=== PATIENT | female | born 1955 | race Caucasian/White ===

== ENCOUNTER 2023-10-28 17:35 | Emergency (ER) | payer BC, SELFPAY ==
[2023-10-28 17:42] VITALS: BP 123/75; PULSE 77; RESP 20; TEMP 36.3; O2SAT 100
--- NOTE | 2023-10-28 18:17 | ED_ITS ---
HPI - General Adult General Chief complaint: Extremity Problem,Nontraumatic Stated complaint: Skin Sore/Finger Time Seen by Provider: 10/28/23 18:18 Source: patient Mode of arrival: ambulatory Limitations: no limitations History of Present Illness HPI narrative: Patient presents for evaluation of pain, swelling, redness and warmth to the skin surrounding the nail plate of the right index finger. Symptom onset 5 days ago. She saw her primary provider 2 days ago and was given a prescription for cephalexin. She has been taking it 3 times per day as directed. No significant improvement in her symptoms or after. She has also been applying warm soaks. She is not diabetic. She does not smoke. She is right-hand dominant. Denies loss of range of motion but movement makes her symptoms worse. She does not provide me with a descriptive quality or numerical rating to her pain. Related Data Home Medications Medication Instructions Recorded Confirmed alprazolam 0.25 mg tablet mg 10/28/23 cephalexin 500 mg capsule mg 10/28/23 clopidogrel 75 mg tablet mg 10/28/23 conjugated estrogens 0.625 mg/gram 10/28/23 vaginal cream (Premarin) famotidine 20 mg tablet (Pepcid) 20 mg PO DAILY 10/28/23 10/28/23 furosemide 20 mg tablet mg 10/28/23 levothyroxine 50 mcg tablet mcg 10/28/23 (Synthroid) losartan 50 mg tablet mg 10/28/23 nebivolol 10 mg tablet mg 10/28/23 Allergies Allergy/AdvReac Type Severity Reaction Status Date / Time erythromycin base Allergy Unknown Rash Verified 10/28/23 18:02 Sulfa (Sulfonamide Allergy Unknown Rash Verified 10/28/23 18:02 Antibiotics) ciprofloxacin [From Cipro] Allergy Unknown Verified 10/28/23 18:02 OXYCODONE HCL AdvReac Unknown Nausea and Uncoded 10/28/23 18:02 Vomiting Review of Systems Review of Systems: CONSTITUTIONAL: Denies fever, chills, or sweats. EYES: Denies visual changes, redness, or discharge. ENT: Denies rhinorrhea, congestion, sore throat, or otalgia. CARDIOVASCULAR: Denies chest pain, palpitations, or edema. RESPIRATORY: Denies cough or dyspnea. GASTROINTESTINAL: Denies abdominal pain, nausea, vomiting, or diarrhea. GENITOURINARY: Denies dysuria or hematuria. SKIN: Reports redness to the skin surrounding the nail plate of the right index finger with associated swelling MUSCULOSKELETAL: Reports pain in skin surrounding nailplate of right index finger. NEUROLOGIC: Denies headache, numbness, dizziness, or weakness. PSYCHIATRIC: Denies anxiety or depression. [facility] Past Medical History Medical History GERD (gastroesophageal reflux disease) Hypertension Surgical History Surgical History H/O: hysterectomy Family History Family History Mother Family history non-contributory Social History Social History Smoking status: Never smoker Substance use: never Living arrangements: with family Gender identity (if verbalized by the patient): Female Sexual Orientation (if Verbalized by the Patient): Straight or Heterosexual Exam Narrative: GENERAL: Well-appearing, well-nourished, and in no acute distress. HEAD: Normocephalic, atraumatic. EYES: PERRLA and EOMI. ENT: Nares clear, no rhinorrhea or epistaxis. Mucous membranes moist. Oropharynx without tonsillar hypertrophy exudate or other lesions. Bilateral TMs pearly sun nonbulging NECK: Supple. No adenopathy or masses. No carotid bruits or JVD CHEST: Clear to auscultation. No respiratory distress. No wheezes rales or rhonchi HEART: Regular rate and rhythm. No murmur heard. Normal peripheral pulses. ABDOMEN: Soft, nontender, nondistended, normal active bowel sounds. EXTREMITIES: Normal range of motion. There is tenderness in the soft tissue of the distal phalanx of the right index finger. SKIN: There is erythema and swelling to the skin surrounding the nail plate of the right index finger. NEURO: No focal deficits. Alert and oriented x3. PSYCH: Normal mood and affect. Course Course Emergency Course: This is a 68-year-old female who presented for evaluation a paronychia to the right index finger. She has not had considerable improvement with cephalexin. I do not appreciate a drainable fluid collection. Will expand coverage with clindamycin. She can stop her cephalexin. Continue with warm soaks. Follow up primary provider. Go to the ER for worsening symptoms. Patient in agreement with plan of care. Level of Care: Express Care Visit Vital Signs Vital signs: Vital Signs Temperature 36.3 C L 10/28/23 17:42 Pulse Rate 77 10/28/23 17:42 Respiratory Rate 20 10/28/23 17:42 Blood Pressure 123/75 10/28/23 17:42 Pulse Oximetry 100 10/28/23 17:42 Oxygen Delivery Room Air 10/28/23 17:42 Temperature 36.3 C L 10/28/23 17:42 Pulse Rate 77 10/28/23 17:42 Respiratory Rate 20 10/28/23 17:42 Blood Pressure 123/75 10/28/23 17:42 Pulse Oximetry 100 10/28/23 17:42 Oxygen Delivery Room Air 10/28/23 17:42 Medical Decision Making Vital Signs Vital Signs: Vital Signs Temperature 36.3 C L 10/28/23 17:42 Pulse Rate 77 10/28/23 17:42 Respiratory Rate 20 10/28/23 17:42 Blood Pressure 123/75 10/28/23 17:42 Pulse Oximetry 100 10/28/23 17:42 Oxygen Delivery Room Air 10/28/23 17:42 Temperature 36.3 C L 10/28/23 17:42 Pulse Rate 77 10/28/23 17:42 Respiratory Rate 20 10/28/23 17:42 Blood Pressure 123/75 10/28/23 17:42 Pulse Oximetry 100 10/28/23 17:42 Oxygen Delivery Room Air 10/28/23 17:42 Discharge Plan Discharge Clinical Impression: Paronychia of right index finger Patient Disposition: Home, Self-Care Condition: Stable Instructions: Antibiotic Form, Paronychia (ED) Patient Language: Hebrew Prescriptions: New clindamycin HCl 300 mg capsule 300 mg PO Q6H 10 Days Qty: 40 0RF No Action losartan 50 mg tablet clopidogrel 75 mg tablet alprazolam 0.25 mg tablet levothyroxine [Synthroid] 50 mcg tablet cephalexin 500 mg capsule Premarin 0.625 mg/gram cream furosemide 20 mg tablet nebivolol 10 mg tablet famotidine [Pepcid] 20 mg Tablet 20 mg PO DAILY Follow-up/Referrals: Taylor,Roge Guadalupe MD [Primary Care Provider] - Time of Disposition: 18:15
== END 2023-10-28 18:20 | disposition home or self-care (01) ==
PROVIDERS: Emergency Provider Nurse Practitioner; PCP Internal Medicine
DX: L03.011 Cellulitis of right finger (principal); K21.9 Gastro-esophageal reflux disease without esophagitis; I10 Essential (primary) hypertension
CPT/HCPCS: 99203; G0463

== ENCOUNTER 2023-12-20 11:53 | Emergency (ER) | payer BC, SELFPAY ==
[2023-12-20 11:58] VITALS: BP 126/56; PULSE 65; RESP 16; TEMP 36.2; O2SAT 99
--- NOTE | 2023-12-20 13:17 | ED.SKABFB ---
HPI - Skin/Abscess/Foreign Bdy General Chief complaint: Skin/Abscess/Foreign Body Stated complaint: Skin Sore /Finger Time Seen by Provider: 12/20/23 13:17 Source: patient, RN notes reviewed and old records reviewed Mode of arrival: ambulatory Limitations: no limitations History of Present Illness HPI narrative: 68 year old female with tenderness and swelling to her right index finger along radial aspect on nail bed with no redness or any fluctuation of tissue. Patient reports that she was treated in October for infection that was caused from a hangnail with antibiotic and it did heal well then about 4 weeks ago she smashed her finger in suitcase and area has no open wound but has been tender since and continues to have a small amount of swelling. 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 MD complaint: other (tenderness with swelling) Onset (ago): week(s) (4 weeks) Location: R hand (2nd finger radial aspect at nailbed ) Severity: mild Quality: aching and dull Treatments prior to arrival: OTC topical medication and other (tylenol) Related Data Home Medications Medication Instructions Recorded Confirmed alprazolam 0.25 mg tablet mg 10/28/23 cephalexin 500 mg capsule mg 10/28/23 clopidogrel 75 mg tablet mg 10/28/23 conjugated estrogens 0.625 mg/gram 10/28/23 vaginal cream (Premarin) famotidine 20 mg tablet (Pepcid) 20 mg PO DAILY 10/28/23 10/28/23 furosemide 20 mg tablet mg 10/28/23 levothyroxine 50 mcg tablet mcg 10/28/23 (Synthroid) losartan 50 mg tablet mg 10/28/23 nebivolol 10 mg tablet mg 10/28/23 Allergies Allergy/AdvReac Type Severity Reaction Status Date / Time erythromycin base Allergy Unknown Rash Verified 10/28/23 18:02 Sulfa (Sulfonamide Allergy Unknown Rash Verified 10/28/23 18:02 Antibiotics) ciprofloxacin [From Cipro] Allergy Unknown Verified 10/28/23 18:02 OXYCODONE HCL AdvReac Unknown Nausea and Uncoded 10/28/23 18:02 Vomiting Review of Systems Review of Systems: CONSTITUTIONAL: Denies fever, chills, or sweats. CARDIOVASCULAR: Denies chest pain, palpitations, or edema. RESPIRATORY: Denies cough or dyspnea. GASTROINTESTINAL: Denies abdominal pain, nausea, vomiting SKIN: Reports redness and swelling to radial aspect of distal 2nd finger along nail bed with no open wound or fluctuance of tissue. MUSCULOSKELETAL: Denies myalgia. NEUROLOGIC: Denies headache, numbness All systems reviewed & are unremarkable except as noted in HPI and below PMFSH Past Medical History Medical History GERD (gastroesophageal reflux disease) Hypertension Surgical History Surgical History H/O: hysterectomy Family History Family History Mother Family history non-contributory Social History Social History Smoking status: Never smoker Substance use: never Living arrangements: with family Gender identity (if verbalized by the patient): Female Sexual Orientation (if Verbalized by the Patient): Straight or Heterosexual Comments At time of signature, agree with nursing past medical, surgical, social and family history. There is no relevant family history pertinent to the presenting complaint Exam Narrative: GENERAL: Well-appearing, well-nourished, and in no acute distress. HEAD: Normocephalic, atraumatic. EYES: PERRLA and EOMI. ENT: Nares clear, no rhinorrhea or epistaxis. Mucous membranes moist. NECK: Supple.no lymphadenopathy CHEST: Clear to auscultation. No respiratory distress. SAO2 99% on room air HEART: Regular rate and rhythm. No murmur heard. Normal peripheral pulses. ABDOMEN: Soft, nontender, nondistended, normal active bowel sounds. EXTREMITIES: Normal range of motion. N
== END 2023-12-20 13:39 | disposition home or self-care (01) ==
PROVIDERS: Emergency Provider Registered Nurse; PCP Internal Medicine
DX: M79.644 Pain in right finger(s) (principal); R22.31 Localized swelling, mass and lump, right upper limb; I10 Essential (primary) hypertension; K21.9 Gastro-esophageal reflux disease without esophagitis
CPT/HCPCS: 99213; G0463

== ENCOUNTER 2024-08-12 08:03 | Emergency (ER) | payer BC, SELFPAY ==
[2024-08-12 08:07] VITALS: BP 122/63; PULSE 66; RESP 20; TEMP 37.2; O2SAT 100
--- NOTE | 2024-08-12 08:18 | ED.URI ---
HPI - URI/Sore Throat General Chief Complaint: Upper Respiratory Infection Stated Complaint: drainage/cough Time Seen by Provider: 08/12/24 08:18 History of Present Illness HPI Narrative: 69-year-old female with a history of PFO and occlude her in place, also wearing Holter monitor presented for complaint of 4 weeks of sinus drainage and cough. Endorses sinus pressure with bending over. states she waited a while because she tends to have allergy symptoms and has been taking Claritin or Florence but stopped due to concern for interaction with her new medicines. Patient denies shortness of breath, wheezing nausea, vomiting, diarrhea, fevers or lethargy. Related Data Home Medications ?Medication ?Instructions ?Recorded ?Confirmed ?Last Taken ?Type clopidogrel 75 mg tablet mg 10/28/23 Unknown History conjugated estrogens 0.625 mg/gram 10/28/23 Unknown History vaginal cream (Premarin) famotidine 20 mg tablet (Pepcid) 20 mg PO DAILY 10/28/23 10/28/23 Unknown History furosemide 20 mg tablet mg 10/28/23 Unknown History levothyroxine 50 mcg tablet mcg 10/28/23 Unknown History (Synthroid) losartan 50 mg tablet mg 10/28/23 Unknown History nebivolol 10 mg tablet mg 10/28/23 Unknown History escitalopram oxalate 5 mg tablet mg 08/12/24 Unknown History Allergies Allergy/AdvReac Type Severity Reaction Status Date / Time erythromycin base Allergy Unknown Rash Verified 08/12/24 08:21 Sulfa (Sulfonamide Allergy Unknown Rash Verified 08/12/24 08:21 Antibiotics) ciprofloxacin (From Cipro) Allergy Unknown Verified 08/12/24 08:21 oxycodone AdvReac Intermediate Nausea and Verified 08/12/24 08:21 Vomiting Review of Systems Review of Systems: CONSTITUTIONAL: Denies body aches, fever, chills, or sweats. EYES: Denies visual changes, redness, or discharge. ENT: Reports rhinorrhea, congestion CARDIOVASCULAR: Denies chest pain, palpitations, or edema. RESPIRATORY: Denies dyspnea. GASTROINTESTINAL: Denies abdominal pain, nausea, vomiting, or diarrhea. SKIN: Denies rash, itching, or wounds. MUSCULOSKELETAL: Denies back pain, joint pain, or myalgia. NEUROLOGIC: Denies headache PMFSH Past Medical History Medical History GERD (gastroesophageal reflux disease) Hypertension Surgical History Surgical History H/O: hysterectomy Family History Family History Mother Family history non-contributory Social History Social History Smoking status: Never smoker Substance use: never Living arrangements: with family Gender identity (if verbalized by the patient): Female Sexual Orientation (if Verbalized by the Patient): Straight or Heterosexual Exam Narrative: GENERAL: well-appearing, no acute distress. EYES: conjunctivae clear ENT: Mucous membranes moist. TM pearly sun with normal light reflex bilaterally; no tragal tenderness. Oropharynx not erythematous without lesions. No drooling, no hoarseness, no trismus, uvula midline. No tripod positioning, hot potato voice, or soft palate swelling. NECK: Supple. No lymphadenopathy CHEST: Clear to auscultation, breath sounds equal. No respiratory distress, speaks in full sentences. HEART: Regular rate and rhythm. No murmur heard. SKIN: Warm, dry, no rash. NEURO: Alert and oriented x3. Course Course Emergency Course: Patient is aware of diagnosis, understands and agrees to treatment plan. Anticipatory guidance given. Patient agrees to follow-up as directed and is aware of reasons to seek care at the emergency department. Portions of this record may have been created with voice recognition software Level of Care: Express Care Visit MDM - URI/Sore Throat MDM Narrative Medical decision making narrative: discussed physical exam findings and antibiotic. Advise supportive treatments. Patient is appropriate for outpatient treatment and follow-up. Differential Diagnosis Differential diagnosis: Likely upper respiratory infection, viral infection and pharyngitis Discharge Plan Discharge Clinical Impression: Sinusitis Patient Disposition: Home, Self-Care Condition: Stable Instructions: Antibiotic Form, Rhinosinusitis (ED) Additional Instructions: Take antibiotic as directed Recommendations: Flonase spray and Zyrtec (or Claritin/Florence) over the counter Cough syrup may cause drowsiness; avoid driving or take it at night time. Coricidin if you have high blood pressure. Tylenol 1000mg every 8 hours as needed for pain Symptomatic treatment includes: rest, fluids, and increase humidity of the air at home. Follow up with your primary care provider in 1 week. Go to the ER for worsening symptoms or concerns. Patient Language: Hong Konger Prescriptions: New amoxicillin-pot clavulanate 875-125 mg tablet 1 tablet PO Q12H 7 Days Qty: 14 0RF No Action losartan 50 mg tablet clopidogrel 75 mg tablet levothyroxine [Synthroid] 50 mcg tablet Premarin 0.625 mg/gram cream furosemide 20 mg tablet nebivolol 10 mg tablet famotidine [Pepcid] 20 mg Tablet 20 mg PO DAILY escitalopram oxalate 5 mg tablet Follow-up/Referrals: Brandon,Roge Guadalupe MD [Primary Care Provider] -
== END 2024-08-12 08:30 | disposition home or self-care (01) ==
PROVIDERS: Emergency Provider Nurse Practitioner Family; PCP Internal Medicine
DX: J32.9 Chronic sinusitis, unspecified (principal); I10 Essential (primary) hypertension
CPT/HCPCS: 99213; G0463

== ENCOUNTER 2024-09-24 13:54 | Emergency (ER) | payer MEDICARE, SELFPAY ==
[2024-09-24 14:08] VITALS: BP 136/67; PULSE 75; RESP 20; TEMP 36.8; O2SAT 98
--- NOTE | 2024-09-24 14:12 | ED.URI ---
HPI - URI/Sore Throat General Chief Complaint: Upper Respiratory Infection Stated Complaint: sinus infection Time Seen by Provider: 09/24/24 14:12 Source: patient, RN notes reviewed and old records reviewed Mode of arrival: ambulatory Limitations: no limitations History of Present Illness HPI Narrative: 69 year old female presents to [facility] care with complaints of cough, green nasal drainage, frontal headache,pain to upper facial cheek region, teeth and jaw for over one week duration. Patient reports that cough has improved some but is worse at night causing difficulty sleeping. Patient reports that she did have 101F.5 fever on Sunday. Patient has been taking Mucinex, Tylenol and Claritin for her symptoms. MD elicited complaint: fever, cough, rhinorrhea, nasal congestion, sinus pain and other (frontal headache) Onset (ago): week(s) (greater rhan 1 week) Pain scale (0-10): 6 Description of mucous: green Able to tolerate fluids by mouth: Yes Treatments prior to arrival: acetaminophen and other (Mucinex, Claritin) Related Data Home Medications ?Medication ?Instructions ?Recorded ?Confirmed ?Last Taken ?Type clopidogrel 75 mg tablet mg 10/28/23 Unknown History conjugated estrogens 0.625 mg/gram 10/28/23 Unknown History vaginal cream (Premarin) famotidine 20 mg tablet (Pepcid) 20 mg PO DAILY 10/28/23 09/24/24 Unknown History furosemide 20 mg tablet mg 10/28/23 Unknown History levothyroxine 50 mcg tablet mcg 10/28/23 Unknown History (Synthroid) losartan 50 mg tablet mg 10/28/23 Unknown History nebivolol 10 mg tablet mg 10/28/23 Unknown History escitalopram oxalate 5 mg tablet mg 08/12/24 Unknown History Allergies Allergy/AdvReac Type Severity Reaction Status Date / Time erythromycin base Allergy Unknown Rash Verified 09/24/24 14:08 Sulfa (Sulfonamide Allergy Unknown Rash Verified 09/24/24 14:08 Antibiotics) ciprofloxacin (From Cipro) Allergy Unknown Verified 09/24/24 14:08 oxycodone AdvReac Intermediate Nausea and Verified 09/24/24 14:08 Vomiting Review of Systems Review of Systems: CONSTITUTIONAL: Reports malaise, chills, sweats, or fever. EYES: Denies visual changes, redness, or discharge. ENT: Reports rhinorrhea, congestion, sinus pain, no otalgia and nosore throat. CARDIOVASCULAR: Denies chest pain, palpitations, or edema. RESPIRATORY: Reports cough.? Denies dyspnea. GASTROINTESTINAL: Denies abdominal pain, nausea, vomiting, diarrhea SKIN: Denies rash or itching. MUSCULOSKELETAL: Denies myalgia. NEUROLOGIC:Frontal headache. 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 There is no relevant family history pertinent to the presenting complaint Exam Narrative: GENERAL: Well-appearing, well-nourished, and in no acute distress. HEAD: Normocephalic EYES: PERRLA, conjunctivae clear ENT: Nares clear, turbinates edematous and erythematous, greenish discharge, sinus pressure and frontal headache. Mucous membranes moist. TM pearly sun with dull light reflex bilaterally; no tragal tenderness. Oropharynx erythematous without lesions. Tonsils not enlarged and without exudate, no drooling, no hoarseness, no trismus, uvula midline.post nasal drainage NECK: Supple. No lymphadenopathy CHEST: Clear to auscultation, breath sounds equal. No wheezing, rhonchi, rales, or stridor. No respiratory distress, speaks in full sentences.cough, increasing at night, SAO2 98% on room air HEART: Regular rate and rhythm. No murmur heard. SKIN: Warm, dry, no rash. NEURO: Alert and oriented x3. PSYCH: Normal mood and affect Course Course Emergency Course: Patient is aware of diagnosis, understands and agrees to treatment plan.? Anticipatory guidance given.? Patient agrees to follow-up as directed and is aware of reasons to seek care at the emergency department. Portions of this record may have been created with voice recognition software Level of Care: Express Care Visit Vital Signs Vital signs: Vital Signs Temperature 36.8 C 09/24/24 14:08 Pulse Rate 75 09/24/24 14:08 Respiratory Rate 20 09/24/24 14:08 Blood Pressure 136/67 09/24/24 14:08 Pulse Oximetry 98 09/24/24 14:08 Oxygen Delivery Room Air 09/24/24 14:08 Temperature 36.8 C 09/24/24 14:08 Pulse Rate 75 09/24/24 14:08 Respiratory Rate 20 09/24/24 14:08 Blood Pressure 136/67 09/24/24 14:08 Pulse Oximetry 98 09/24/24 14:08 Oxygen Delivery Room Air 09/24/24 14:08 Reviewed MDM - URI/Sore Throat MDM Narrative Medical decision making narrative: Differential diagnosis considered: Villa virus, strep pharyngitis, allergic rhinitis, upper respiratory tract infection, sinusitis, rhinosinusitis, nasopharyngitis. viral pharyngitis, otitis media, otitis externa, pneumonia, bronchitis, viral cough syndrome, viral syndrome, and influenza.? Exam findings show no acute concerns or changes; patient is non-toxic appearing and is in no distress.? Patient is appropriate for outpatient treatment and follow-up. Differential Diagnosis Differential diagnosis: Likely upper respiratory infection, sinusitis, viral infection, bronchitis and other (cough) Medical Records Attestation: I reviewed the patient's medical records. Lab Data Attestation: I reviewed the patient's lab results. Critical Care Time Critical Care Time Critical Care Time: No Discharge Plan Discharge Clinical Impression: Acute sinusitis Qualifiers: Sinusitis location: pansinusitis Recurrence: not specified as recurrent Qualified Code(s): J01.40 - Acute pansinusitis, unspecified Patient Disposition: Home, Self-Care Condition: Stable Instructions: Antibiotic Form, Sinusitis (ED) Additional Instructions: Increase fluids especially juices and water [id number] cough and cold medicine of your choice for your symptoms Zyrtec,Claritin, or Florence daily and include CORICIDIN decongestant Steroids as directed--take with food heat to the face 20-30 minutes 4-6 times a day for pain Salt water gargles, throat lozenges or throat sprays as desired Antibiotic as directed--finished the medication If your symptoms persist, change or worsen significantly before you can contact your personal physician then please, without delay, go to the emergency department for further evaluation. Follow-up with PCP in 7-10 days or sooner if needed Follow up with PCP soon in regards to your blood pressure which is elevated above threshold for referral. Blood pressure above 120/80 may indicate pre-hypertension. 136/67 Patient Language: Croatian Prescriptions: New amoxicillin-pot clavulanate 875-125 mg tablet 1 tablet PO Q12H Qty: 20 0RF methylprednisolone [Medrol (Spencer)] 4 mg tablets,dose pack See Rx Instructions .ROUTE .COMPLEX Qty: 21 0RF Rx Instructions: orally per package directions No Action losartan 50 mg tablet clopidogrel 75 mg tablet levothyroxine [Synthroid] 50 mcg tablet Premarin 0.625 mg/gram cream furosemide 20 mg tablet nebivolol 10 mg tablet famotidine [Pepcid] 20 mg Tablet 20 mg PO DAILY escitalopram oxalate 5 mg tablet Follow-up/Referrals: Brandon,Roge Guadalupe MD [Primary Care Provider] - Time of Disposition: 14:38 Quality Rachel Coma Scale Eyes: Open Verbal: Oriented and Alert Motor: Follows Commands Rachel Coma Total Score: 15
--- OUTSIDE RECORDS SUMMARY | 2024-09-24 15:33 | XMS_ITS | Encounter Summary ---
Author Organization [employer] Address 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
--- OUTSIDE RECORDS SUMMARY | 2024-09-24 15:33 | XMS_ITS | Clinical Summary ---
Author Organization [facility] Address [address] [place] [address] Care Team Providers Care Manager [employer] Name Role Phone Roge Taylor MD Primary Care Provider [phone] [facility],non-owned Affiliates and Associated Physician Practices is amultiple site organization consisting of ambulatory clinics and hospital sitesin [place], [place], [place] and [place]. This disclosure is being madepursuant to the Care Everywhere program and may not contain all information available regarding this patient. Last updated 18.[facility] Allergies Active Allergy Reactions Criticality Noted Date Comments Levonorgestrel-Ethinyl Estrad Unknown 08/03/2023 Oxycodone Shortness of Breath High 06/11/2019 Reaction: Trouble Breathing, Oxycodone-Acetaminophen Unknown,Shortnes s of Breath High 01/21/2020 Oxycodone-Acetaminophen Nausea and/or Vomiting 12/20/2012 Couldn't breathe Sulfa Drugs Urticaria Medium 12/20/2012 Sulfabenzamide Unknown 10/09/2016 Medications * Be aware that medications may not be up to date on this document. Alwaysverify current medications with the patient. Medication Sig Dispensed Refills Start Date End Date Status conjugated estrogens (PREMARIN) 0.625 MG/GM vaginal cream Insert 0.5 g into the vagina at bedtime. Active famotidine (Pepcid) 20 MG tablet Take 1 (one) tablet by mouth once daily Two tablets by mouth once a day Active aspirin (Aspirin) 81 MG chew tablet Take 1 (one) tablet by mouth once daily Active Cholecalciferol (VITAMIN D3 PO) Take 1 tablet by mouth once daily 04/19/2023 Active levothyroxine (Synthroid) 50 MCG tablet Take 1 (one) tablet by mouth once daily 02/20/2023 Active ALPRAZolam (Xanax) 0.25 MG tablet TAKE 1 TABLET BY MOUTH TWICE DAILY NEEDED 30 tablet 09/28/2023 Active furosemide (Lasix) 20 MG tablet Take 1 (one) tablet by mouth once daily 90 tablet 3 10/10/2023 Active losartan (Cozaar) 50 MG tablet Take 1 (one) tablet by mouth once daily 90 tablet 3 10/10/2023 Active escitalopram (Lexapro) 5 MG tablet Take 1 (one) tablet by mouth once daily 03/13/2024 Active clopidogrel (plaVIX) 75 MG tablet Take 1 (one) tablet by mouth once daily 90 tablet 3 09/16/2024 Active nebivolol (Bystolic) 10 MG tablet Take 1 (one) tablet by mouth once daily 90 tablet 3 09/16/2024 Active nebivolol (Bystolic) 10 MG tablet Take 1 (one) tablet by mouth once daily 11/22/2022 09/16/2024 Discontinued (Reorder) clopidogrel (plaVIX) 75 MG tablet Take 1 (one) tablet by mouth once daily 7 tablet 01/21/2024 09/16/2024 Discontinued (Reorder) Active Problems Problem Noted Date Diagnosed Date Mild carotid artery disease 09/20/2023 ASD (atrial septal defect) 06/15/2023 Mitral valve insufficiency, unspecified etiology 05/18/2023 Abnormal finding on MRI of brain 04/06/2023 Headache around the eyes 01/18/2023 Visual disturbance 01/18/2023 Chronic headache disorder 01/27/20222023 Allergic rhinitis 04/22/2020 07/26/2023 Overview (07/26/2023): Last Assessment & Plan: Flonase 2 sprays into each nostril while looking down over the sink, do not sniff in or blow nose after use for at least 30 minutes Cetirizine 10 mg (Zyrtec) daily Bilateral hearing loss 04/22/2020 4 Overview (07/26/2023): Last Assessment & Plan: Hearing test - call with results A Few Causes of Ringing in Your Ears (Tinnitus) discussed and Handout provided Lymphedema of both lower extremities 01/21/2020 Right leg pain 01/21/2020 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 01/21/2020 Osteoarthrosis 12/12/2019 07/26/2023 History of total hysterectom y with bilateral salpingo-oophorectomy (BSO) 06/13/2019 Osteopenia 09/06/2018 07/26/2023 Peripheral venous insufficiency 06/20/2017 07/26/2023 Steatosis of liver 06/20/2017 07/26/2023 Anxiety 06/08/2017 07/26/2023 Gastroesophageal reflux disease 06/08/2017 07/26/2023 Primary hypertension 06/08/2017 07/26/2023 Hypothyroidism 06/08/2017 07/26/2023 Resolved Problems Problem Noted Date Diagnosed Date Resolved Date Refusal of treatment 06/13/2019 024 Encounters Date Type Department Care Team Description 09/16/2024 Refill [facility] [address], [address] [place] [address] Deepthi Mauricio APRN-CNP MEDICATION REFILL 09/03/2024 Telephone [facility] [address], [address] [address] Edgard Washington DO Results 08/05/2024 9:15 AM COVER STRIPPER Procedure visit [facility] [address], [address] [place] [address] Bradycardia ; ASD (atrial septal defect) 07/31/2024 11:30 AM COVER STRIPPER Office Visit [facility] [address], [facility] [address] [place] [address] Edgard Washington DO Abnormal finding on MRI of brain (Primary Dx); ASD (atrial septal defect); Headache around the eyes; Bradycardia from Last 3 Months Immunizations Name Administration Dates Next Due INFLUENZA VACCINE, TRIV. (AF LURIA, FLUZONE TRIVALENT; 6MO+) (IIV3) 03/25/2012 Family History Medical History Relation Name Comments Hypertension Father Other - Cardiac Father Diabetes - Type 2 Mother Hypertension Mother Other Mother cardiac cath Other - Anesthesia Mother Demtia Relation Name Status Comments Father Mother Sister Alive Social History Tobacco Use Types Packs/Day Years Used Date Smoking Tobacco: Never Smokeless Tobacco: Never Alcohol Use Standard Drinks/Week Comments No 0 (1 standard drink = 0.6 oz pur e alcohol) Hunger Vital Sign Answer Date Recorded Within the past 12 months, y ou worried that your food would run out before you got the money to buy more. Never true 05/19/20 Within the past 12 months, t he food you bought just didn't last and you didn't have money to get more. Never true 05/19/2023 Sex and Gender Information Value Date Recorded Sex Assigned at Not on file Gender Identity Not on file Sexual Orientation Not on file Last Filed Vital Signs Vital Sign Reading Time Taken Comments Blood Pressure 112/63 07/31/2024 11:55 AM COVER STRIPPER Pulse 51 07/31/2024 11:55 AM COVER STRIPPER Temperature 36.2 C (97.1 F) 06/12/2024 10:29 AM COVER STRIPPER Respiratory Rate 18 06/16/2023 7:50 AM COVER STRIPPER Oxygen Saturation 99% 06/12/2024 10:29 AM COVER STRIPPER Inhaled Oxygen Concentration - - Weight 71.2 kg (157 lb) 07/31/2024 11:55 AM COVER STRIPPER Height 157.5 cm (5' 2 ) 07/31/2024 11:55 AM COVER STRIPPER Body Mass Index 28.72 07/31/2024 11:55 AM COVER STRIPPER Plan of Treatment Upcoming Encounters Date Type Department Care Team (Late st Contact Info) Description 01/22/2025 10:45 AM CDT Appointment [facility] [address] [place] [address] 01/22/2025 11:30 AM CDT Office Visit [facility] [address], [address] [place] [address] Keegan Olvera MD [address] [facility] [address] [place] [address] Health Maintenance Due Date Last Done Comments COLON MONITORING 1956 COLONOSCOPY - COLON CA SCREENING 1956 CT COLONOGRAPHY - COLON CA SCREENING 1956 FIT - COLON CA SCREENING 1956 FLEX SIG - COLON CA SCREENING 1955 HEPATITIS C SCREENING 03/22/1974 DTAP/TDAP/TD VACCINES (1 - Tdap) 1975 PNEUMOCOCCAL VACCINE 50+ (1 of 1 - PCV) 2006 ZOSTER VACCINE (1 of 2) 2006 COVID-19 VACCINE (1 - season) 2024 INFLUENZA VACCINE (#1) 2024 03/25/2012 DEPRESSION SCREENING 07/09/2024 COLOGUARD (AGES 45-75) - COLON CA SCREENING 07/26/2024 07/26/2021 Colorectal Cancer Screening 07/26/2024 MAMMOGRAM 09/20/2025 09/21/2023, 09/06, 09/14/2022, Additional history exists SCREENING FOR DIABETES 07/27/2026 , 06/16/2023, 06/08/2023, Additional history exists LIPID TESTING 04/24/2029 04/24/2024, 07/09, 04/19/2023, Additional history exists Respiratory Syncytial Virus (RSV) Vaccine Pt: or over 60 yrs (1 - 1-dose 75+ series) 2031 BONE DENSITY TESTING Completed 09/28/2022, 05/05/2016, 04/03/2014 HEPATITIS B VACCINE Aged Out No longe r eligible based on patient's age to complete this topic HIB VACCINE Aged Out No longer eligi ble based on patient's age to complete this topic HPV VACCINE Aged Out No longer eligi ble based on patient's age to complete this topic MENINGOCOCCAL (Group B) VACCINE SHARED DECISION-MAKING Aged Out No longer eligible based on patient's age to complete this topic MENINGOCOCCAL GROUPS A/C/Y/W VACCINE Aged Out No longer eligible based on patient's age to complete this topic Medical Devices Implanted Type Area Back Winder Device Identifier Shelf Expiration Date Model / Serial / Lot Oclr Cv Rt Atr Disc 30mm Lt Atr Disc 25 Implanted:Qty: 1 on 06/15/2023 by Keegan Olvera MD at [facility] [id number] 10/06/2025 9- PFO-3025 / N/A / [id number] Procedures Procedure Name Priority Date/Time Associated Diagnosis Comments EVENT MONITOR Routine 08/26/2024 9:19 AM COVER STRIPPER ASD (atrial septal defect) Bradycardia BASIC METABOLIC PANEL (CALCIUM TOTAL) Routine 07/27/2023 12:59 PM COVER STRIPPER ASD (atrial septal defect) Hypertension, unspecified type Dyslipidemia LIPID PROFILE Routine 07/27/2023 12:59 PM COVER STRIPPER Dyslipidemia from Last 3 Months or Most Recently Relevant to Health Maintenance Results * EVENT MONITOR (08/26/2024 9:19 AM COVER STRIPPER) Narrative Cecilia Oorna MD - 08/26/2024 9:19 AM COVER STRIPPER Cecilia Orona MD 08/28/2024 2:24 PM OVERALL IMPRESSION: Fourteen day monitor reviewed There were no arrhythmias, pauses or heart blocks No PVCs or PACs detected 6 total patient triggered events, for them associated with sinus bradycardia, the slowest symptomatic rate was 55 beats per minute Cecilia Orona MD Edgard Washington DO CARDIAC SERVICES ORD ERABLES * BASIC METABOLIC PANEL (BMP) (07/27/2023 12:59 PM COVER STRIPPER) Glucose 91 70 - 99 mg/dL [facility] ACCOUNT BILL BUN 14 8 - 27 mg/dL [facility] ACCOUNT BILL Creatinine 0.74 0.57 - 1.00 mg/dL [facility] ACCOUNT BILL eGFR by CKD-EPI 89 >59 mL/min/1.7 3 [facility] ACCOUNT BILL BUN/Creatinine Ratio 19 12 - 28 [facility] ACCOUNT BILL Sodium 137 134 - 144 mmol/L [facility] ACCOUNT BILL Potassium 4.1 3.5 - 5.2 mmol/L [facility] ACCOUNT BILL Chloride 98 96 - 106 mmol/L [facility] ACCOUNT BILL CO2 22 20 - 29 mmol/L [facility] ACCOUNT BILL Calcium 9.7 8.7 - 10.3 mg/dL [facility] ACCOUNT BILL Blood BLOOD SPECIMEN / Unknown 07/27/2023 12:59 PM COVER STRIPPER 07/27/2023 Narrative Resulting Agency Comment Lab Testing performed at: [facility] [place] [address] [facility] [phone] Deepthi Mauricio SERVER SUPPORT TECHNICIAN-TALENT ANALYST LAB - CHEMISTR Y ORDERABLES [facility] ACCOUNT BILL [address] [place] [address] * (ABNORMAL) LIPID PROFILE (LIPID PANEL) (07/27/2023 12:59 PM COVER STRIPPER) Cholesterol 189 100 - 199 mg/dL [facility] ACCOUNT BILL Triglycerides 101 0 - 149 mg/dL [facility] ACCOUNT BILL HDL Cholesterol 49 >39 mg/dL [facility] ACCOUNT BILL VLDL Calculated 18 5 - 40 mg/dL [facility] ACCOUNT BILL LDL Calculated 122(H) 0 - 99 mg/dL [facility] ACCOUNT BILL Comment NOT AVAILABLE [facility] ACCOUNT BILL Comment:Result cannot be obt ained for this observation. Blood BLOOD SPECIMEN / Unknown 07/27/2023 12:59 PM COVER STRIPPER 07/27/2023 Narrative Resulting Agency Comment Lab Testing performed at: [facility] [address] [id number] Deepthi Mauricio SERVER SUPPORT TECHNICIAN-TALENT ANALYST LAB - CHEMISTR Y ORDERABLES Performing Organization Address City/[facility] Co de Phone Number [facility] ACCOUNT BILL [address] [place] [address] from Last 3 Months or Most Recently Relevant to Health Maintenance Advance Directives * Full Code (Latest Code Status on File) Date Activated Date Inactivated Comments 06/15/2023 4:30 PM 06/16/2023 12:17 PM * Full Code Date Activated Date Inactivated Comments 05/18/2023 4:47 PM 05/19/2023 12:11 PM Care Teams Manager Six [employer] Relationship Specialty [place] [id number] [address] PCP - General Internal Medicine 02/06/18
--- OUTSIDE RECORDS SUMMARY | 2024-09-24 15:33 | XMS_ITS | Clinical Summary ---
Author Organization [facility] Address [address] [place] [address] Phone Care Team Providers Care Prefabricated Houses Trimmer Name Role Phone Roge Taylor MD Primary Care Provider [phone] Allergies Active Allergy Reactions Criticality Noted Date Comments Acetaminophen Shortness of Breath/Wheezing High 06/11/2019 Ciprofloxacin Unknown High 08/16/2017 Levonorgestrel-Ethinyl Estrad Other (See Comments),Unknown 08/03/2023 Oxycodone Shortness of Breath/Wheezing High 06/11/2019 Oxycodone-Acetaminophen Shortness of Breath/Wheezing,Other (See Comments) High 07/12/2012 Sulfa (Sulfonamide Antibiotics) Rash Low 07/12/2012 Medications multivitamin (DAILY-KAYLA) Oral tablet Take 1 Tab by mouth daily. Active levothyroxine 50 mcg tablet Take 50 mcg by mouth daily biztalk consultant. Active raNITIdine (ZANTAC) 150 mg tablet Take 150 mg by mouth 2 times daily. Active ergocalciferol , vitamin D2, (VITAMIN D ORAL) Take by mouth. Activ e cetirizine (ZyrTEC) 10 mg tablet cetirizine 10 mg tablet TAKE 1 TABLET BY MOUTH DAILY Active nebivoloL (Bystolic) 10 mg Tablet Take by mouth. 2 Active losartan (COZAAR) 50 mg tablet Take 50 mg by mouth daily. 3 Active furosemide (LASIX) 20 mg tablet Take 20 mg by mouth daily. 3 Active famotidine (PEPCID) 20 mg tablet Take by mouth every 12 hours. 2 Active cyanocobalamin 1,000 mcg Tablet take 1 tablet by oral route every day 3 025 Active clopidogreL (PLAVIX) 75 mg Tablet Take 75 mg by mouth daily. 3 Active cholecalcifero l, vitamin D3, 1,000 unit Take by mouth. Acti ve aspirin (TOM CHEWABLE) 81 mg Tablet, Chewable Take 81 mg by mouth daily. Active conjugated estrogens (Premarin) 0.625 mg/gram vaginal cream 1 Gram by See Admin Instructions route see administration instructions. 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 Encounters Date Type Department Care Team Description 09/24/2024 External Device Data STL ABSTRACTION Provider, Abstract 09/16/2024 External Device Data STL ABSTRACTION Provider, Abstract 09/16/2024 External Device Data STL ABSTRACTION Provider, Abstract 09/13/2024 External Device Data STL ABSTRACTION Provider, Abstract 09/12/2024 External Device Data STL ABSTRACTION Provider, Abstract 09/10/2024 External Device Data STL ABSTRACTION Provider, Abstract 09/09/2024 External Device Data STL ABSTRACTION Provider, Abstract 08/26/2024 External Device Data STL ABSTRACTION Provider, Abstract 07/29/2024 External Device Data STL ABSTRACTION Provider, Abstract 07/22/2024 External Device Data STL ABSTRACTION Provider, Abstract 07/15/2024 External Device Data STL ABSTRACTION Provider, Abstract from Last 3 Months Immunizations Immunization Administration Dates Next Due Influenza Seasonal Unspecified Formulation IM Family History Medical History Relation Name Comments Asthma Father Dementia Father Heart Attack Father Hypertension Father Other Father gout and neurop athy Breast Cancer Maternal Aunt 60's Dementia Mother Diabetes Mother Glaucoma Mother Heart defect Mother Hypertension Mother Relation Name Status Comments Father Alive Maternal Aunt Mother Alive Social History Tobacco Use Types Packs/Day Years Used Date Smoking Tobacco: Never Smokeless Tobacco: Never Tobacco Cessation:Counseling Given: Not Answered Alcohol Use Standard Drinks/Week Comments No 0 (1 standard drink = 0.6 oz pur e alcohol) Comments No Sex and Gender Information Value Date Recorded Sex Assigned at Not on file Legal Sex Female 4:55 AM CLINICAL STAFF ANESTHESIOLOGIST Gender Identity Not on file Sexual Orientation Not on file Occupation Industry Job Start Date Job End Date Not on file Not on file Not on file Not on file Last Filed Vital Signs Vital Sign Reading Time Taken Comments Blood Pressure 126/78 09/21/2023 9:27 AM CDT Pulse 71 06/07/2018 10:05 AM CLINICAL STAFF ANESTHESIOLOGIST Temperature 35.1 C (95.2 F) 07/25/2012 8:00 AM CLINICAL STAFF ANESTHESIOLOGIST Respiratory Rate 18 07/25/2012 8:00 AM CLINICAL STAFF ANESTHESIOLOGIST Oxygen Saturation 99% 07/25/2012 8:00 AM CLINICAL STAFF ANESTHESIOLOGIST Inhaled Oxygen Concentration - - Weight 73.7 kg (162 lb 6.4 oz) 09/21/2023 9:27 A M CDT Height 156.2 cm (5' 1.5 ) 09/21/2023 9:27 AM CDT Body Mass Index 30.19 09/21/2023 9:27 AM CDT Plan of Treatment Health Maintenance Due Date Last Done Comments Pre-Diabetes and Diabetes Screening 1955 DTAP/TDAP/TD VACCINES (1 - Tdap) 1975 FIT/FOBT Q 1 year 2001 Flex Sig/CT Colonography Q 5 years 2001 PNEUMOCOCCAL VACCINE 50+ YEA RS (1 of 1 - PCV) 2006 ZOSTER VACCINE (1 of 2) 2006 COLORECTAL SCREENING 12/21/2016 12/21/2006 INFLUENZA VACCINE (#1) 2024 03/25/2012 Colorectal Cancer Screening 07/26/2024 FIT-DNA Q 3 years 07/26/2024 07/26/2021 BREAST CANCER SCREENING 09/20/2024 09/21/19 24, 09/14/2022, 08/19/2021, Additional history exists OSTEOPOROSIS SCREENING 09/28/2025 3, 09/28/2022, 05/05/2016, Additional history exists RSV VACCINE (60+ or ) (1 - 1-dose 75+ series) 2031 Medical Devices Implanted Type Area Fur Cleaner Device Identifier Shelf Expiration Date Model / Serial / Lot Mesh Alyte Y-Mesh Y500 - [id number] Implanted:Qty: 1 on 07/22/2012 at [facility] Mesh N/A: Vagina CR BARD- MED DIV 03/09/2014 Y500 / / [id number] Amplatzer Talisman Pfo Occluder Procedures Procedure Name Priority Date/Time Associated Diagnosis Comments MAMMO 3D XAVI SCREEN BILAT W OR WO CAD Routine 09/21/2023 9:15 AM CDT Breast cancer screening by mammogram Breast density XR DEXA BONE DENSITY AXIAL 1 OR MORE SITES Routine 09/28/2022 11:18 AM CDT Menopause ovarian failure COLON CANCER SCREEN, STOOL DNA Routine 07/26/2021 1:43 PM CLINICAL STAFF ANESTHESIOLOGIST Screening for colon cancer from Last 3 Months or Most Recently Relevant to Health Maintenance Results * MAMMO SCRN BILAT 3D XAVI W OR WO CAD (09/21/2023 9:15 AM CDT) Anatomical Region Laterality Modality Breast Bilateral Mammography 09/21/2023 8:54 AM CDT Impressions 09/21/2023 1:05 PM CDT IMPRESSION: Normal screening mammogram. OVERALL FINAL ASSESSMENT: BI-RADS CATEGORY 1 - Negative Recommend annual screening mammography. DICTATION LOCATION: [facility] Narrative 09/21/2023 1:05 PM CDT EXAM: BILATERAL SCREENING DIGITAL MAMMOGRAM WITH 3D TOMOSYNTHESIS AND CAD DATE: 09/21/2023 8:52 AM INDICATION: Screening. COMPARISON STUDIES: 09/14/2022 - 08/05/2021 BREAST COMPOSITION: The breasts are heterogeneously dense, which may obscure small masses. FINDINGS: There is no concerning mass, asymmetry, malignant microcalcification or area of architectural distortion in either breast. There is no change when compared to previous mammograms. Computer aided diagnosis was utilized. 3D tomosynthesis performed in 4 standard projections reveals no evidence of architectural distortion or mass. Procedure Note Cameron Singh MD - 09/21/2023 EXAM: BILATERAL SCREENING DIGITAL MAMMOGRAM WITH 3D TOMOSYNTHESIS AND CAD DATE: 09/21/2023 8:52 AM INDICATION: Screening. COMPARISON STUDIES: 09/14/2022 - 08/05/2021 BREAST COMPOSITION: The breasts are heterogeneously dense, which may obscure small masses. FINDINGS: There is no concerning mass, asymmetry, malignant microcalcification or area of architectural distortion in either breast. There is no change when compared to previous mammograms. Computer aided diagnosis was utilized. 3D tomosynthesis performed in 4 standard projections reveals no evidence of architectural distortion or mass. IMPRESSION: Normal screening mammogram. OVERALL FINAL ASSESSMENT: BI-RADS CATEGORY 1 - Negative Recommend annual screening mammography. DICTATION LOCATION: [facility] us Chandni Quintana MD MAMMO ORDERABLES Final Resu lt * XR DEXA BONE DENSITY AXIAL 1 OR MORE SITES (09/28/2022 11:18 AM CDT) Anatomical Region Laterality Modality Digital Radiogra phy 09/28/2022 11:2 2 AM CDT Impressions 09/28/2022 11:29 AM CDT IMPRESSION: This is a summary page. Please refer to the complete detailed report found in the Imaging Section of the [facility] EMR. Osteopenia. Lumbar Spine: T-Score: 0.1 Left Femoral Neck: T-Score: -1.4 Left Total Femur: T-Score: -0.8 Right Femoral Neck: T-Score: -1.4 Right Total Femur: T-Score: -0.7 Left Forearm: T-Score: -1.8 Statistical change: Significant decrease of 8.9 % in Left femoral neck BMD since 2016. Significant decrease of 6.0 % in Right femoral neck BMD since 2016. Significant decrease of 5.3 % in Left forearm BMD since 2016. FRAX FRACTURE RISK ASSESSMENT: (Only valid Between 40-89 Years Of Age) Risk factors: None. 10 Year Probability Of Fracture Major Osteoporotic: 8.9 % Hip: 1.0 % Comparison population: [place], Race: White A major osteoporotic fracture is defined as a fracture of the spine, forearm, hip or shoulder. Definitions: Normal: T-score above -1.0 Osteopenia T-score less than -1.0 and above -2.5 Osteoporosis: T-score <= -2.5 Follow-up Recommendations: Patients without high risk factors for osteoporosis T-score -1.0 to -1.5 - Consider repeat BMD in 5-10 years T-score -1.5 to - 2.0 - Consider repeat BMD in 3-5 years T-score -2.0 to - 2.5 - Consider repeat BMD every 2 years Patients on treatment for osteoporosis 1-2 years after initiation of treatment and every 2 years thereafter D[address] Dr[address] Louis Galvin MD DICTATION LOCATION: 09/28/2022 11:29 AM CDT EXAMINATION: BONE DENSITY STUDY (DXA) DATE: 09/28/2022 11:18 AM HISTORY: 67 years Female. Postmenopausal. PROCEDURE: Planar images of the lumbar spine, hip(s) and forearm(s) using a Tepha DEXA scanner for bone mineral density determination (BMD). Prior bone density: 05/05/2016 FINDINGS: Lumbar Spine (L1-L3): T-Score: 0.1 1.184 g/sq cm Prior: 1.139 g/sq cm Left Femoral Neck: T-Score: -1.4 0.837 g/sq cm Prior: 0.919 g/sq cm Left Total Femur: T-Score: -0.8 Right Femoral Neck: T-Score: -1.4 0.847 g/sq cm Prior: 0.901 g/sq cm Right Total Femur: T-Score: -0.7 Left 33% Radius: T-Score: -1.8 0.721 g/sq cm Prior: 0.761 g/sq cm INCIDENTAL FINDINGS: L4 excluded bcause of statistical variation.. Procedure Note Louis Galvin MD - 09/28/2022 EXAMINATION: BONE DENSITY STUDY (DXA) DATE: 09/28/2022 11:18 AM HISTORY: 67 years Female. Postmenopausal. PROCEDURE: Planar images of the lumbar spine, hip(s) and forearm(s) using a Tepha DEXA scanner for bone mineral density determination (BMD). Prior bone density: 05/05/2016 FINDINGS: Lumbar Spine (L1-L3): T-Score: 0.1 1.184 g/sq cm Prior: 1.139 g/sq cm Left Femoral Neck: T-Score: -1.4 0.837 g/sq cm Prior: 0.919 g/sq cm Left Total Femur: T-Score: -0.8 Right Femoral Neck: T-Score: -1.4 0.847 g/sq cm Prior: 0.901 g/sq cm Right Total Femur: T-Score: -0.7 Left 33% Radius: T-Score: -1.8 0.721 g/sq cm Prior: 0.761 g/sq cm INCIDENTAL FINDINGS: L4 excluded bcause of statistical variation.. IMPRESSION: This is a summary page. Please refer to the complete detailed report found in the Imaging Section of the [facility] EMR. Osteopenia. Lumbar Spine: T-Score: 0.1 Left Femoral Neck: T-Score: -1.4 Left Total Femur: T-Score: -0.8 Right Femoral Neck: T-Score: -1.4 Right Total Femur: T-Score: -0.7 Left Forearm: T-Score: -1.8 Statistical change: Significant decrease of 8.9 % in Left femoral neck BMD since 2016. Significant decrease of 6.0 % in Right femoral neck BMD since 2016. Significant decrease of 5.3 % in Left forearm BMD since 2016. FRAX FRACTURE RISK ASSESSMENT: (Only valid Between 40-89 Years Of Age) Risk factors: None. 10 Year Probability Of Fracture Major Osteoporotic: 8.9 % Hip: 1.0 % Comparison population: [place], Race: White A major osteoporotic fracture is defined as a fracture of the spine, forearm, hip or shoulder. Definitions: Normal: T-score above -1.0 Osteopenia T-score less than -1.0 and above -2.5 Osteoporosis: T-score <= -2.5 Follow-up Recommendations: Patients without high risk factors for osteoporosis T-score -1.0 to -1.5 - Consider repeat BMD in 5-10 years T-score -1.5 to - 2.0 - Consider repeat BMD in 3-5 years T-score -2.0 to - 2.5 - Consider repeat BMD every 2 years Patients on treatment for osteoporosis 1-2 years after initiation of treatment and every 2 years thereafter Dictated by Dr. Louis Galvin MD DICTATION LOCATION: 1 Chandni Quintana MD DIAGNOSTIC IMAGING ORDERABL ES Final Result * COLON CANCER SCREEN, STOOL DNA (07/26/2021 1:43 PM CLINICAL STAFF ANESTHESIOLOGIST) COLOGUARD RESULT Negative Negative [facility] Comment: NEGATIVE TEST RESULT. A negative Cologuard result indicates a low likelihood that a colorectal cancer (CRC) or advanced adenoma (adenomatous polyps with more advanced pre-malignant features) is present. The chance that a person with a negative Cologuard test has a colorectal cancer is less than 1 in 1500 (negative predictive value >99.9%) or has an advanced adenoma is less than 5.3% (negative predictive value 94.7%). These data are based on a prospective cross-sectional study of 10,000 individuals at average risk for colorectal cancer who were screened with both Cologuard and colonoscopy. (Maurilio Zuñiga al, N Engl J Med 2014;370(14):9166-1359) The normal value (reference range) for this assay is negative. COLOGUARD RE-SCREENING RECOMMENDATION: Periodic colorectal cancer screening is an important part of preventive healthcare for asymptomatic individuals at average risk for colorectal cancer. Following a negative Cologuard result, the [place] Cancer Society and U.S. Multi-Society Task Force screening guidelines recommend a Cologuard re-screening interval of 3 years. References: [place] Cancer Society Guideline for Colorectal Cancer Screening: https://www.cancer.org/cancer/msecg-cvxkwv-dnxpxo/mxckgjomv-ilwkhhanl-lgodybd/ac s-rec ommendations.html.; Jaron DK, Jose A CR, Gladys HaileK, Colorectal Cancer Screening: Recommendations for Physicians and Patients from the U.S. Multi-Society Task Force on Colorectal Cancer Screening , Am J Gastroenterology 2017; 112:5922-0469. TEST DESCRIPTION: Composite algorithmic analysis of stool DNA-biomarkers with hemoglobin immunoassay. Quantitative values of individual biomarkers are not reportable and are not associated with individual biomarker result reference ranges. Cologuard is intended for colorectal cancer screening of adults of either sex, 45 years or older, who are at average-risk for colorectal cancer (CRC). Cologuard has been approved for use by the U.S. FDA. The performance of Cologuard was established in a cross sectional study of average-risk adults aged 50-84. Cologuard performance in patients ages 45 to 49 years was estimated by sub-group analysis of near-age groups. Colonoscopies performed for a positive result may find as the most clinically significant lesion: colorectal cancer [4.0%], advanced adenoma (including sessile serrated polyps greater than or equal to 1cm diameter) [20%] or non- advanced adenoma [31%]; or no colorectal neoplasia [45%]. These estimates are derived from a prospective cross-sectional screening study of 10,000 individuals at average risk for colorectal cancer who were screened with both Cologuard and colonoscopy. (Maurilio Mc et al, N Engl J Med 2014;370(14):7196-5273.) Cologuard may produce a false negative or false positive result (no colorectal cancer or precancerous polyp present at colonoscopy follow up). A negative Cologuard test result does not guarantee the absence of CRC or advanced adenoma (pre-cancer). The current Cologuard screening interval is every 3 years. ([place] Cancer Society and U.S. Multi-Society Task Force). Cologuard performance data in a 10,000 patient pivotal study using colonoscopy as the reference method can be accessed at the following location: www.FOODit/results. Additional description of the Cologuard test process, warnings and precautions can be found at www.[facility].com. Stool STOOL SPECIMEN / Unknown 07/26/2021 1:43 PM CLINICAL STAFF ANESTHESIOLOGIST 07/27/2021 4:36 PM CLINICAL STAFF ANESTHESIOLOGIST Chandni Qunitana MD BODY FLUIDS AND STOOLS Brittany pitts Result [employer] CLIA # [id number] [address] , [address] [place] [address] from Last 3 Months or Most Recently Relevant to Health Maintenance Insurance [facility] BLUE ACCESS CHOICE [facility] BLUE ACCESS CHOICE Advance Directives For more information, please contact: [phone] * Full Code (Latest Code Status on File) Date Activated Date Inactivated Comments 07/22/2012 5:23 PM 07/25/2012 6:22 PM * Full Code Date Activated Date Inactivated Comments 07/22/2012 12:13 PM 07/22/2012 5:23 PM * Full Code Date Activated Date Inactivated Comments 07/22/2012 9:10 AM 07/22/2012 12:13 PM Care Teams Prefabricated Houses Trimmer Relationship Specialty [place] [id number] [facility] [address] [place] [id number] PCP - General Internal Medicine 08/05/21
--- OUTSIDE RECORDS SUMMARY | 2024-09-24 15:33 | XMS_ITS | Encounter Summary ---
Author Organization [facility] Address 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 Gender Identity Not on file Sexual Orientation Not on file documented as of this encounter Plan of Treatment Not on file documented as of this encounter Procedures Procedure Name Priority Date/Time Associated Diagnosis Comments HEMOGLOBIN AND HEMATOCRIT Routine 11/13/2005 2:16 PM CDT documented in this encounter Results * (ABNORMAL) HEMOGLOBIN AND HEMATOCRIT (11/13/2005 2:16 PM CDT) HEMOGLOBIN 15.5(H) 11.8 - 14.8 g/dL INTERFACE SYSTEM HEMATOCRIT 44.6(H) 35.5 - 44.0 % INTERFACE SYSTEM 11/13/2005 2:16 PM CDT us Harman Noble MD HEMATOLOGY ORDERABLES F inal Result INTERFACE SYSTEM Refer to clinic/hospital department documented in this encounter Visit Diagnoses Diagnosis Dyspareunia- Primary documented in this encounter Care Teams Amusement Park Entertainer Relationship Specialty [place] [address] [place] [address] PCP - General Internal Medicine 08/05/21 documented as of this encounter
--- OUTSIDE RECORDS SUMMARY | 2024-09-24 15:33 | XMS_ITS | Encounter Summary ---
Author Organization [facility] Address [address] [place] [address] Care Team Providers Care Talent Director Name Role Phone Roge Taylor MD Primary Care Provider [phone] Encounter Details Date Type Department Care Team (Late st Contact Info) Description 02/14/2005 Inpatient Historical [facility] Harman Noble MD [address] [facility] [address] [place] [address] VAGINAL ENTEROCELE (Primary Dx) Social History Tobacco Use Types Packs/Day Years Used Date Smoking Tobacco: Never Assessed Comments Unknown Sex and Gender Information Value Date Recorded Sex Assigned at Not on file Legal Sex Female 4:55 AM MANAGER ENGLISH Gender Identity Not on file Sexual Orientation Not on file documented as of this encounter Plan of Treatment Not on file documented as of this encounter Procedures Procedure Name Priority Date/Time Associated Diagnosis Comments HEPATITIS C ANTIBODY Routine 02/16/2005 9:20 AM CDT CBC WITH DIFFERENTIAL Routine 02/01/2005 11:42 AM CDT CBC WITH DIFFERENTIAL Routine 02/01/2005 11:42 AM CDT BASIC METABOLIC PANEL Routine 02/01/2005 11:42 AM CDT documented in this encounter Results * HEPATITIS C ANTIBODY (02/16/2005 9:20 AM CDT) HEPATITIS C AB NON-REACT JANEY NON-REACT JANEY INTERFACE SYSTEM Comment: Lab test performed by: [facility] [address] [place] [address] CLYDE SANDY MD 02/16/2005 9:20 AM CDT Ivory Stovall MD CHEMISTRY ORDERAB LES Final Result Performing Organization Address City/[facility]/ZIP Co de Phone Number INTERFACE SYSTEM Refer to clinic/hospital department * CBC WITH DIFFERENTIAL (02/01/2005 11:42 AM CDT) NEUTROPHILS 61 45 - 70 % INTERFAC E SYSTEM LYMPHOCYTES 31 16 - 45 % INTERFAC E SYSTEM MONOCYTES 6 3 - 13 % INTERFACE SYSTEM EOSINOPHILS 1 0 - 7 % INTERFAC E SYSTEM BASOPHILS 0 0 - 2 % INTERFACE SYSTEM NEUTROPHIL ABSOLUTE 4.88 1.90 - 7.00 K/uL INTERFACE SYSTEM LYMPHOCYTE ABSOLUTE 2.50 0.70 - 4.50 K/uL INTERFACE SYSTEM MONOCYTE ABSOLUTE 0.49 0.10 - 1.30 K/uL INTERFACE SYSTEM EOSINOPHIL ABSOLUTE 0.10 0.00 - 0.70 K/uL INTERFACE SYSTEM BASOPHILS ABSOLUTE 0.02 0.00 - 0.20 K/uL INTERFACE SYSTEM 02/01/2005 11:4 2 AM CDT us Harman Noble MD HEMATOLOGY ORDERABLES F inal Result Performing Organization Address [facility] Co de Phone Number INTERFACE SYSTEM Refer to clinic/hospital department * (ABNORMAL) CBC WITH DIFFERENTIAL (02/01/2005 11:42 AM CDT) WBC 8.0 4.0 - 9.8 K/uL INTERFACE SYSTEM RBC 4.84 3.90 - 4.90 M/uL INTERFACE SYSTEM HEMOGLOBIN 15.1(H) 11.8 - 14.8 g/dL INTERFACE SYSTEM HEMATOCRIT 43.3 35.5 - 44.0 % INTERFACE SYSTEM MCV 89.5 82.0 - 99.0 fL INTERFACE SYSTEM MCH 31.2 27.2 - 32.6 pg INTERFACE SYSTEM MCHC 34.9 31.5 - 35.5 % INTERFACE SYSTEM RDW 13.4 11.5 - 14.5 % INTERFACE SYSTEM RDW-STDEV 43.8 37.1 - 48.7 fL INTERFACE SYSTEM PLATELETS 209 140 - 350 K/uL INTERFACE SYSTEM MPV 10.1 9.3 - 12.4 fL INTERFACE SYSTEM 02/01/2005 11:4 2 AM CDT Harman Noble MD HEMATOLOGY ORDERABLES F inal Result Performing Organization Address City/[facility]/ZIP Co de Phone Number INTERFACE SYSTEM Refer to clinic/hospital department * BASIC METABOLIC PANEL (02/01/2005 11:42 AM CDT) GLUCOSE 94 65 - 109 mg/dL INTERFACE SYSTEM CREATININE 0.8 0.4 - 1.2 mg/dL INTERFACE SYSTEM CALCIUM 9.3 8.6 - 10.2 mg/dL INTERFACE SYSTEM BUN 14 6 - 20 mg/dL INTERFACE SYSTEM SODIUM 143 135 - 145 mmol/L INTERFACE SYSTEM POTASSIUM 4.3 3.5 - 4.9 mmol/L INTERFACE SYSTEM CHLORIDE 108 96 - 108 mmol/L INTERFACE SYSTEM CO2 25 22 - 30 mmol/L INTERFACE SYSTEM 02/01/2005 11:4 2 AM CDT Harman Noble MD CHEMISTRY ORDERABLES Fi nal Result Performing Organization Address [facility] Phone Number INTERFACE SYSTEM Refer to clinic/hospital department documented in this encounter Visit Diagnoses Diagnosis Vaginal enterocele, congenital or acquired- Primary documented in this encounter Care Teams Talent Director Relationship Specialty [place] [address] [facility] [address] [place] [id number] PCP - General Internal Medicine 08/05/21 documented as of this encounter
--- OUTSIDE RECORDS SUMMARY | 2024-09-24 15:33 | XMS_ITS | Clinical Summary ---
Author Organization [facility] Address [address] [place] [address] Care Team Providers Care Blog Writer Name Role Phone Flor Castillo MD Unavailable Roge Taylor MD Primary Care Provider [phone] Allergies Active Allergy Reactions Criticality Noted Date Comments Acetaminophen Shortness of breath Reaction: Trouble Breathing, Ciprofloxacin Unknown High 08/16/2017 Levonorgestrel-Ethinyl Estrad Unknown 08/03/2023 Oxycodone Shortness of breath Reaction: Trouble Breathing, Oxycodone-Acetaminophen Shortness of breath High Sulfa (Sulfonamide Antibiotics) Hives Reaction: Hives, Medications melatonin tablet take 1 Tablet by Oral route every day 0 0 06/16/20 15 Active estrogens, conjugated, (PREMARIN) vaginal cream insert (1G) by vaginal route every day cyclically, 3 weeks on and 1 week off 0 0 08/21/19 15 Active cyanocobalamin (vitamin B-12) 1,000 mcg tablet take 1 by Oral route qd 0 0 08/21/19 15 Active multivitamin (MULTIPLE VITAMINS) tablet tablet take 1 tablet by oral route every day with food 0 0 08/21/19 15 Active ALPRAZolam (XANAX) 0.25 mg tablet take 1 tablet by ORAL route every day at bedtime 30 0 02/13/20 15 Active gabapentin (NEURONTIN) 300 mg capsule take 1 capsule by oral route 2 times every day 60 4 05/05/[address] (NexIUM) 40 mg capsule take 1 capsule by oral route every day at bedtime 30 6 08/21/19 15 Active benzonatate (TESSALON) 200 mg capsule take 1 capsule by oral route 3 times every day as needed for cough 20 0 06/28/20 16 Active ciprofloxacin (CIPRO) 250 mg tablet take 1 tablet by oral route every 12 hours 14 0 08/06/19 17 Active cetirizine (ZyrTEC) 10 mg tablet take 1 tablet by oral route every day 90 1 09/29/19 16 Active fluticasone (FLONASE) 50 mcg/actuation nasal spray spray 2 spray by intranasal route every day in each nostril 1 Bottle 3 09/29/19 16 Active levothyroxine (SYNTHROID, LEVOTHROID) 50 mcg tablet TAKE 1 TABLET EVERY DAY FIRST THING IN THE MORNING 90 tablet 03/01/20 17 Active triamterene-hydroC HLOROthiazide (MAXZIDE,DYAZIDE) 37.5-25 mg per tablet TAKE ONE-HALF (1/2) TABLET DAILY 45 tablet 3 03/01/20 17 Active levothyroxine (SYNTHROID, LEVOTHROID) 50 mcg tablet TAKE 1 TABLET EVERY DAY FIRST THING IN THE MORNING 90 tablet 1 08/28/19 18 Active escitalopram (LEXAPRO) 10 mg tablet TAKE 1 TABLET DAILY 90 tablet 11/27/19 18 Active ranitidine (ZANTAC) 150 mg capsule Take 1 capsule (150 mg total) by mouth 2 (two) times a day Active famotidine (PEPCID) 20 mg tablet Take 1 tablet (20 mg total) by mouth 2 (two) times a day Active fluticasone propionate (FLONASE) 50 mcg/actuation nasal sprayIndications:A llergic rhinitis, unspecified seasonality, unspecified trigger Administer 2 sprays into each nostril daily 16 g 11 04/22/20 20 Active Additional Information Patient not taking.Reported on 08/03/2023 triamterene-hydroC HLOROthiazide (Dyazide) 37.5-25 mg per tablet/capsule Take by mouth A ctive ondansetron ODT (ZOFRAN-ODT) 4 mg disintegrating tablet Take 1 tablet (4 mg total) by mouth every 8 (eight) hours as needed for nausea or vomiting 20 tablet 03/30/20 21 Active furosemide (LASIX) 20 mg tablet Take 1 tablet (20 mg total) by mouth daily 05/19/20 23 Active nebivoloL (BYSTOLIC) 10 mg tablet Take 1 tablet (10 mg total) by mouth daily 09/15/19 22 Active losartan (COZAAR) 50 mg tablet Take 1 tablet (50 mg total) by mouth daily 05/19/20 23 Active clopidogreL (PLAVIX) 75 mg tablet Take 1 tablet (75 mg total) by mouth daily 06/17/20 23 Active aspirin 81 mg chewable tablet Take 1 tablet (81 mg total) by mouth daily Active Active Problems Problem Noted Date Diagnosed Date Bilateral hearing loss 04/22/2020 Assessment & Plan (04/22/2020 7:01 PM CDT): Hearing test - call with results A Few Causes of Ringing in Your Ears (Tinnitus) discussed and Handout provided Allergic rhinitis 04/22/2020 Assessment & Plan (04/22/2020 6:58 PM CDT): Flonase 2 sprays into each nostril while looking down over the sink, do not sniff in or blow nose after use for at least 30 minutes Cetirizine 10 mg (Zyrtec) daily Bilateral lower extremity edema 07/22/2018 Assessment & Plan (07/22/2018 10:12 AM NURSE PRACTITIONER): Right worse than left. Evidence of tributary vein reflux on Doppler in February. Will repeat Doppler to determine if there's deep or truncal vein reflux that could account for edema. Discussed possibility of lymphedema if we rule out a venous source - in which case we would recommend the knee high 20-30 mmHg support hose she is already wearing coupled with manual lymphatic drainage offered through a local physical therapy outlet. Muscle spasm of right calf 07/22/2018 Gastroesophageal reflux disease 08/21/2014 Overview (10/12/2016): GERD Hypothyroidism 08/21/2014 Overview (10/12/2016): Hypothyroidism Hypertension 08/21/2014 Overview (10/12/2016): Hypertension Recurrent urinary tract infection 08/21/2014 Overview (10/12/2016): Frequent UTI Well woman exam with routine gynecological exam 04/03/2014 Vaginal prolapse 07/22/2012 Surgical History Surgery Date Site/Laterality Comments TOTAL ABDOMINAL HYSTERECTOMY Hysterectomy, total CARDIAC SURGERY 06/15/2023 [facility], Cardiac Surgery Medical History Medical History Date Comments Hx Other Medical 12/07/1992 Tubaligation; C omments: KKL 08/21/2014 - Anxiety disorder Anxiety Hypertension Hypertension Hx Other Medical 09/2013 plasma rich alexander sma grafts bilateral knee Hx Other Medical tubal ligation; Comments: EMB 10/16/2014 - Hx Other Medical hysterectomy; C omments: EMB 10/16/2014 - Hx Other Medical cystocele; Comm ents: EMB 10/16/2014 - Hx Other Medical rectocele; Comm ents: EMB 10/16/2014 - Hx Other Medical sarcospinous co lpopexy; Comments: EMB 10/16/2014 - Hx Other Medical perineoplasty; Comments: EMB 10/16/2014 - Hx Other Medical abdominal sacro colpopexy; Comments: EMB 10/16/2014 - Hx Other Medical enterocele repa ir; Comments: EMB 10/16/2014 - Family History Medical History Relation Name Comments Dementia Father Dementia; Heart disease Father Heart disease; Hypertension Father Hypertension; Dementia Mother Dementia; Cause of : Dementia Diabetes Mother Diabetes mellit us; Glaucoma Mother Glaucoma; Hypertension Mother Hypertension; Dementia Other Family history of Dementia; Relation Name Status Comments Father Mother Other Social History Tobacco Use Types Packs/Day Years Used Date Smoking Tobacco: Never Smokeless Tobacco: Never Tobacco Cessation:Counseling Given: Not Answered Alcohol Use Standard Drinks/Week Comments No 0 (1 standard drink = 0.6 oz pur e alcohol) Personal Safety Answer Date Recorded Have you ever been in or are you currently in a harmful physical or emotional relationship or is someone making you feel afraid or unsafe? Denies 02/17/2023 Comments No Sex and Gender Information Value Date Recorded Sex Assigned at Not on file Legal Sex Female 7:09 PM NURSE PRACTITIONER Gender Identity Not on file Sexual Orientation Not on file Obstetrics History Last Filed Vital Signs Vital Sign Reading Time Taken Comments Blood Pressure 126/64 08/03/2023 10:03 AM NURSE PRACTITIONER Pulse 72 08/03/2023 10:03 AM NURSE PRACTITIONER Temperature 36.3 C (97.4 F) 08/03/2023 10:03 AM NURSE PRACTITIONER Respiratory Rate 20 08/03/2023 10:03 AM NURSE PRACTITIONER Oxygen Saturation 98% 08/03/2023 10:03 AM NURSE PRACTITIONER Inhaled Oxygen Concentration - - Weight 72.6 kg (160 lb) 08/03/2023 10:03 AM NURSE PRACTITIONER Height 157.5 cm (5' 2 ) 08/03/2023 10:03 AM NURSE PRACTITIONER Body Mass Index 29.26 08/03/2023 10:03 AM NURSE PRACTITIONER Plan of Treatment Health Maintenance Due Date Last Done Comments Colon Cancer Screening-Colonoscopy 1955 Depression Screening 1956 Fall Risk Assessment 1956 Hepatitis C Screening 1956 DTaP/Tdap/Td Vaccine (1 - Tdap) 1967 Hepatitis B Screening 1974 Pneumococcal vaccine 65+ (1 of 1 - PCV) 2006 Zoster Vaccine (1 of 2) 2006 Well Visit 65+ 2021 Influenza Vaccine (#1) 2024 03/25/2012 Breast Cancer Screening-Mammogram 09/20/2024 09/21/2023, 09/21/2023, 09/14/2022, Additional history exists Osteoporosis Screening-Bone Density Scan 09/28/2024 09/28/2022, 09/28/2022, 05/05/2016, Additional history exists Insurance [employer] OOS Member Subscriber Plan / Payer (Ef fective 2018-Present) Name:Rafia Floyd Relation to Subscriber:Spouse Name:Pj Floyd Date of :1959 (Home) Address: [address] [place] [address] Payer ID:[id number] (NAIC) Type:[facility] Address: [address] [place] [id number] MEDICARE MEDICARE MEDICARE BLUE ACC CHOICE OOS MEDICARE [facility] Address: [id number] [place] [address] BLUE [facility] CHOICE OOS Care Teams Blog Writer Relationship Specialty Start Date End Date Roge Taylor MD PCP - General Internal Medicine 07/22/18 Flor Castillo MD Consulting Physician Urology 07/11/18
--- OUTSIDE RECORDS SUMMARY | 2024-09-24 15:33 | XMS_ITS | Referral Summary ---
Author Organization [facility] Address [address] [place] [address] Care Team Providers Care Outside Upholsterer Name Role Phone Flor Castillo MD Unavailable Roge Taylor MD Primary Care Provider [phone] Allergies Active Allergy Reactions Criticality Noted Date [...] 07/22/2018 Assessment & Plan (07/22/2018 10:12 AM CUT OFF MACHINE UNLOADER): Right worse than left. Evidence of tributary [...] routine gynecological exam 04/03/2014 Vaginal prolapse 07/22/2012 Social History Tobacco Use Types Packs/Day Years [...] on file Legal Sex Female 7:09 PM CUT OFF MACHINE UNLOADER Gender Identity Not on file Sexual Orientation Not on file Last Filed Vital Signs Vital Sign Reading Time Taken Comments Blood Pressure 126/64 08/03/2023 10:03 AM CUT OFF MACHINE UNLOADER Pulse 72 08/03/2023 10:03 AM CUT OFF MACHINE UNLOADER Temperature 36.3 C (97.4 F) 08/03/2023 10:03 AM CUT OFF MACHINE UNLOADER Respiratory Rate 20 08/03/2023 10:03 AM CUT OFF MACHINE UNLOADER Oxygen Saturation 98% 08/03/2023 10:03 AM CUT OFF MACHINE UNLOADER Inhaled Oxygen Concentration - - Weight 72.6 kg (160 lb) 08/03/2023 10:03 AM CUT OFF MACHINE UNLOADER Height 157.5 cm (5' 2 ) 08/03/2023 10:03 AM CUT OFF MACHINE UNLOADER Body Mass Index 29.26 08/03/2023 10:03 AM CUT OFF MACHINE UNLOADER Plan of Treatment Not on file Insurance [employer] OOS MEDICARE MEDICARE MEDICARE BLUE ACC CHOICE OOS MEDICARE BLUE ACC CHOICE OOS Care Teams Outside Upholsterer Relationship Specialty Start Date End Date Roge Taylor MD PCP - General Internal Medicine 07/22/18 Flor Castillo MD Consulting Physician Urology 07/11/18
--- OUTSIDE RECORDS SUMMARY | 2024-09-24 15:33 | XMS_ITS | Encounter Summary ---
Author Organization [facility] Address [address] [place] [address] Care Team Providers Care Spray Operator Name Role Phone Roge Taylor MD Primary Care Provider [phone] Encounter Details Date Type Department Care Team (Late Contact Info) Description 05/16/2018 [facility] Outpatient Visit [facility] [address] [place] [address] Kirill [place] [address] [facility] [address] [place], [place] [id number] Social History Tobacco Use Types Packs/Day Years Used Date Smoking Tobacco: Never Smokeless Tobacco: Never Alcohol Use Standard Drinks/Week Comments No 0 (1 standard drink = 0.6 oz pur e alcohol) Sex and Gender Information Value Date Recorded Sex Assigned at Not on file Gender Identity Not on file Sexual Orientation Not on file documented as of this encounter Plan of Treatment Upcoming Encounters Date Type Department Care Team (Late Contact Info) Description 01/22/2025 10:45 AM CDT Appointment [facility] [address] [facility] [address] [place] [address] 01/22/2025 11:30 AM CDT Office Visit [facility] [address], [address] [place] [address] Keegan Olvera MD [address] [facility] [address] [place] [address] documented as of this encounter Visit Diagnoses Not on filedocumented in this encounter Care Teams Spray Operator Relationship Specialty [place] [address] [id number] PCP - General Internal Medicine 02/06/18 documented as of this encounter
--- OUTSIDE RECORDS SUMMARY | 2024-09-24 15:33 | XMS_ITS | Encounter Summary ---
Author Organization [employer] [facility] Address [address] [place] [address] Care Team Providers Care Energy Rater Name Role Phone Roge Taylor MD Primary Care Provider [phone] Encounter Details Date Type Department Care Team (Late st Contact Info) Description 09/19/2007 Outpatient Historical [facility], [address] Harman Noble MD [address] [place] [address] Urinary Tract Infection, Site not Specified Social History Tobacco Use Types Packs/Day Years Used Date Smoking Tobacco: Never Assessed Comments Unknown Sex and Gender Information Value Date Recorded Sex Assigned at Not on file Legal Sex Female 4:55 AM RELIGIOUS HEALER Gender Identity Not on file Sexual Orientation Not on file documented as of this encounter Plan of Treatment Not on file documented as of this encounter Procedures Procedure Name Priority Date/Time Associated Diagnosis Comments URINE CULTURE Routine 09/19/2007 8:10 PM CDT documented in this encounter Results * URINE CULTURE (09/19/2007 8:10 PM CDT) PRELIMINARY REPORT Pending INTERFACE SYSTEM FINAL REPORT No growth 24 hours INTERFACE SYSTEM 09/19/2007 8:10 PM CDT 09/19/2007 9:41 PM CDT Narrative INTERFACE SYSTEM - 09/19/2007 11:36 PM CDT [phone] us Harman Noble MD MICROBIOLOGY - GENERAL ORDERABLES Final Result INTERFACE SYSTEM Refer to clinic/hospital department documented in this encounter Visit Diagnoses Diagnosis Urinary tract infection, site not specified documented in this encounter Care Teams Energy Rater Relationship Specialty [place] [address] [facility] [address] [place] [address] PCP - General Internal Medicine 08/05/21 documented as of this encounter
--- OUTSIDE RECORDS SUMMARY | 2024-09-24 15:33 | XMS_ITS | Encounter Summary ---
Author Organization [employer] Address [address] [place] [address] Care Team Providers Care Window Glazier Name Role Phone Roge Taylor MD Primary Care Provider [phone] Encounter Details Date Type Department Care Team (Late st Contact Info) Description 01/07/2003 Outpatient [facility] Division of Neurology [address] [place] [address] [address] [address] Dot Ag MD Social History Tobacco Use Types Packs/Day Years Used Date Smoking Tobacco: Never Assessed Comments Unknown Sex and Gender Information Value Date Recorded Sex Assigned at Not on file Legal Sex Female 4:55 AM SALES ADVISORY MANAGER Gender Identity Not on file Sexual Orientation Not on file documented as of this encounter Plan of Treatment Not on file documented as of this encounter Visit Diagnoses Not on filedocumented in this encounter Care Teams Window Glazier Relationship Specialty [place] [address] [address] [place] [address] PCP - General Internal Medicine 08/05/21 documented as of this encounter
--- OUTSIDE RECORDS SUMMARY | 2024-09-24 15:33 | XMS_ITS | Encounter Summary ---
Author Organization [facility] Address [address] [place] [address] Care Team Providers Care Prototype Engineer Manager Name Role Phone Roge Taylor MD Primary Care Provider [phone] Encounter Details Date Type Department Care Team (Late st Contact Info) Description 09/24/2024 External Device Data [facility] ABSTRACTION Provider, Abstract NO ADDRESS ON FILE Social History Tobacco Use Types Packs/Day Years Used Date Smoking Tobacco: Never Smokeless Tobacco: Never Alcohol Use Standard Drinks/Week Comments No 0 (1 standard drink = 0.6 oz pur e alcohol) Comments No Sex and Gender Information Value Date Recorded Sex Assigned at Not on file Legal Sex Female 4:55 AM ELECTRONIC EQUIPMENT TRADES WORKER Gender Identity Not on file Sexual Orientation Not on file Occupation Industry Job Start Date Job End Date Not on file Not on file Not on file Not on file documented as of this encounter Plan of Treatment Not on file documented as of this encounter Visit Diagnoses Not on filedocumented in this encounter Care Teams Prototype Engineer Manager Relationship Specialty [place] [address] [facility] [address] [place] [address] PCP - General Internal Medicine 08/05/21 documented as of this encounter
--- OUTSIDE RECORDS SUMMARY | 2024-09-24 15:33 | XMS_ITS | CONTINUITY OF CARE DOCUMENT ---
Author Name new wolff Address Unknown Organization [facility] Address [address] [address] [facility] [address] [place] [address] Phone [phone] Care Team Providers Care Energy Audit Advisor Name Role Phone Manoj ANN, Luis Unavailable [phone] ISIS WATSON MD Unavailable ISIS WATSON MD Unavailable PROBLEMS Condition Status Date Provider Notes Venous insufficiency active Baltazar kennedy Dx per Dr. Watson Other symptoms involving cardiovascular system completed - Abran Beach MD Lightheadedness active Abran Beach MD HTN essential active Abran Beach MD Hypothyroidism active Abran Beach MD GERD active Abran Beach MD Obesity active Abran Beach MD Shortness of breath active Abran Beach MD Near syncope active Abran Beach MD Coronary atherosclerosis active Luis Aranda MD Family History of Hypertension: completed - Abran Beach MD ENCOUNTERS Date Type Provider Location Encounter Diag nosis 2 - 2 In-person encounter Office Visit Luis Aranda MD [facility] 2 - 6 In-person encounter Office Visit Luis Aranda MD [facility] Coronary atherosclerosis 8 - 8 In-person encounter Office Visit Luis Aranda MD [facility] 8 - 0 In-person encounter Office Visit Luis Aranda MD [facility] 9 - 2 In-person encounter Office Visit Luis Aranda MD [facility] 9 - 1 In-person encounter Office Visit Luis Aranda MD [facility] 8 - 9 In-person encounter Office Visit Luis Aranda MD [facility] 2 - 3 In-person encounter Office Visit Abran Beach MD [facility] Family History of Hypertension:Other symptoms involving cardiovascular systemNear syncope 8 - 8 In-person encounter Office Visit Abran Beach MD [facility] 7 - 7 In-person encounter Office Visit Abran Beach MD [place] [facility] Shortness of breath 4 - 4 In-person encounter Office Visit Abran Beach MD [place] [facility] 9 - 9 In-person encounter Office Visit Abran Beach MD [facility] LightheadednessHTN essentialHypothyroidismGERDObesity VITAL SIGNS Date Observation Value Provider Body Mass Index (Ratio) 29.84 kg/m2 renée Aranda MD blood pressure, diastolic 73 mm[Hg] [facility] bella Russell blood pressure, systolic 140 mm[Hg] Tomer Russell oxygen saturation, oximetry 97 % Lurdes Russell pulse rate 73 /min Lurdes Russell respiratory rate E&M 18 /min Lurdes polk weight E&M 165.8 [lb_av] Lurdes Russell height E&M 62.5 [in_i] Lurdes Russell Body Mass Index (Ratio) 29.66 kg/m2 renée Aranda MD blood pressure, diastolic -1 mm[Hg] Kamini nkLogcharmaine blood pressure, systolic 129 mm[Hg] Chantelle kLogcharmaine blood pressure, diastolic 70 mm[Hg] Ame Amaro blood pressure, systolic 129 mm[Hg] She salomon Amaro blood pressure, cuff size regular Ame Amaro respiratory rate E&M 18 /min Justina Amaro oxygen saturation, oximetry 99 % Justina Amaro pulse rate 66 /min Justina Amaro weight E&M 164.8 [lb_av] Justina Amaro height E&M 62.5 [in_i] Justina Amaro Body Mass Index (Ratio) 28.97 kg/m2 sean Aranda MD blood pressure, cuff size regular Blair rri Gruenenfelder blood pressure, diastolic 80 mm[Hg] Ke rri Gruenenfelder blood pressure, systolic 136 mm[Hg] Ker ri Claudia oxygen saturation, oximetry 99 % Christelle Claudia respiratory rate E&M 16 /min Christelle G marybelenefoster pulse rate 70 /min Christelle Grlauranenfe lder weight E&M 161 [lb_av] Christelle Gruenenfe lder height E&M 62.5 [in_i] Christelle Gruenenfe lder Body Mass Index (Ratio) 30.95 kg/m2 sean Aranda MD blood pressure, cuff size regular Ke rri Gruenenfelder blood pressure, diastolic 72 mm[Hg] Ke rri Gruenenfelder blood pressure, systolic 130 mm[Hg] Ker ri Dimitriuenenfelder oxygen saturation, oximetry 100 % Christelle Gruenenfelder respiratory rate E&M 16 /min Christelle smalls pulse rate 65 /min Christelle Awais radhaer weight E&M 172 [lb_av] Christelle Awais radhaer height E&M 62.5 [in_i] Christelle Ernandez danial Body Mass Index (Ratio) 30.59 kg/m2 Elroy Aranda MD blood pressure, cuff size large Me samina Kila blood pressure, diastolic 80 mm[Hg] Me samina Kila blood pressure, systolic 140 mm[Hg] [facility] helle Kila oxygen saturation, oximetry 98 % Latrice Callahan respiratory rate E&M 16 /min Aaliyah Edwardsand pulse rate 79 /min Latrice motta weight E&M 170 [lb_av] Latrice motta height E&M 62.5 [in_i] Latrice motta Body Mass Index (Ratio) 30.41 kg/m2 [facility] renée Aranda MD blood pressure, cuff size large Me samina Kila blood pressure, diastolic 80 mm[Hg] Me samina Kila blood pressure, systolic 150 mm[Hg] [facility] helle Kila oxygen saturation, oximetry 97 % Latrice Callahan respiratory rate E&M 18 /min Aaliyah robert EdwardsCallahan pulse rate 73 /min Latrice motta weight E&M 169 [lb_av] Latrice motta height E&M 62.5 [in_i] Latrice motta Body Mass Index (Ratio) 30.59 kg/m2 Elroy Aranda MD oxygen saturation, oximetry 98 % Lillistcarolina Haley pulse rate 72 /min Chastity Sudha weight E&M 170 [lb_av] Chastity Sudha blood pressure, diastolic 68 mm[Hg] Ch astity Sudha blood pressure, systolic 171 mm[Hg] Lilli stity Sudha respiratory rate E&M 16 /min Chastit y Sudha height E&M 62.5 [in_i] Chastity Sudha Body Mass Index (Ratio) 30.95 kg/m2 Keri Beach MD blood pressure, diastolic 86 mm[Hg] Li nkLogic blood pressure, systolic 124 mm[Hg] Chantelle kLogic blood pressure, cuff size large Ca therine [place] blood pressure, diastolic 86 mm[Hg] Ca therine Neftaly blood pressure, systolic 124 mm[Hg] Cat herine [place] height E&M 62.5 [in_i] Rehana [place] oxygen saturation, oximetry 98 % Rehana Neftaly respiratory rate E&M 16 /min Catheri ne Neftaly pulse rate 92 /min Rehana [place] weight E&M 172 [lb_av] Rehana [place] blood pressure, diastolic 68 mm[Hg] Me weldonsa Virgen blood pressure, systolic 116 mm[Hg] Rain jori Virgen pulse rate 76 /min Kelley Virgen oxygen saturation, oximetry 98 % Kelley Virgen respiratory rate E&M 15 /min Kelley Virgen Body Mass Index (Ratio) 32.03 kg/m2 Jihan reba Virgen weight E&M 178 [lb_av] Kelley Virgen blood pressure, diastolic 79 mm[Hg] Senait Ayala blood pressure, systolic 151 mm[Hg] Katie Ayala Body Mass Index (Ratio) 31.78 kg/m2 Kimberlee Ayala pulse rate 79 /min Robert stoddard oxygen saturation, oximetry 97 % Robert Ayala respiratory rate E&M 18 /min Yumiko Ayala weight E&M 176.6 [lb_av] Robert simpson Body Mass Index (Ratio) 31.49 kg/m2 Baez i Claudia blood pressure, diastolic 70 mm[Hg] Ke rri Claudia blood pressure, systolic 110 mm[Hg] Ker ri Claudia pulse rate 77 /min Christelle Awais [place] oxygen saturation, oximetry 98 % Christelle Taylor respiratory rate E&M 16 /min Christelle smalls weight E&M 175 [lb_av] Christelle Awais garciaer Body Mass Index (Ratio) 32.03 kg/m2 Amina Abraham blood pressure, diastolic 85 mm[Hg] Juan Abraham blood pressure, systolic 150 mm[Hg] Donell Abraham pulse rate 73 /min Lili Abraham oxygen saturation, oximetry 99 % Lili Abraham respiratory rate E&M 17 /min Lili Abraham weight E&M 178 [lb_av] Lili Abraham height E&M 62.5 [in_i] Lili Abraham ALLERGIES Allergy Name Onset Date Reaction Criticality Status PERCOCET Low Criticality active SULFA Low Criticality active RESULTS Date Observation Value Provider Reference Range Interpretation Location NT-pro BNP 88 [facility] Normal alanine aminotransferase (SGPT), serum 32 1/L [facility] 6-29 High aspartate aminotransferase (SGOT), serum 22 1/L [facility] 10-35 Normal alkaline phosphatase, serum 74 1/L [facility] 37-153 Normal bilirubin, serum, total 0.7 mg/dL [facility] 0.2-1.2 Normal albumin/globulin ratio, serum 1.8 (calc) [facility] 1.0-2.5 Normal globulins, serum, total 2.4 G/DL (CALC) [facility] 1.9-3.7 Normal albumin, serum 4.3 g/dL [facility] 3.6-5.1 Normal protein, total, serum 6.7 g/dL [facility] 6.1-8.1 Normal calcium, serum 9.7 mg/dL [facility] 8.6-10.4 Normal carbon dioxide, venous blood 26 mmol/L [facility] 20-32 Normal chloride, serum 104 mmol/L [facility] 98-110 Normal potassium, serum 4.1 mmol/L [facility] 3.5-5.3 Normal sodium, serum 140 mmol/L [facility] 135-146 Normal urea nitrogen/creatinine ratio, serum NOT APPLICABLE (calc) [facility] 6-22 Estimated Glomerular Filtration Rate (calc) 87 mL/min/{1.73 _m2} [facility] > OR = 60 Normal creatinine, serum 0.82 mg/dL [facility] 0.50-0.99 Normal urea nitrogen, blood 14 mg/dL [facility] 7-25 Normal blood glucose, random 187 mg/dL [facility] 65-99 High thyroid stimulating hormone, serum 2.36 u[IU]/mL [facility] 0.40-4.50 Normal free thyroxine index 2.6 [facility] 1.4-3.8 Normal thyroxine, serum, total 8.8 ug/dL [facility] 5.1-11.9 Normal triiodothyronine resin uptake 30 % [facility] 22-35 Normal microalbumin/creati nine ratio, urine NOTE mcg/mg creat [facility] <30 Normal microalbumin/total urine volume <0.2 mg/dL [facility] See Note: Normal creatinine, random, urine 22 mg/dL [facility] 20-275 Normal cholesterol, non-HDL, total 153 mg/dL [facility] C, [place] [address] HDL CHOLESTEROL 46 mg/dL [facility] >=40 Normal , [place] [address] triglyceride, serum, fasting 148 mg/dL [facility] <=149 Normal , [place] [address] cholesterol, serum 199 mg/dL [facility] 30-199 Normal , [place] [address] HISTORY OF MEDICATION USE Medication Status Instructions Dates Provider Indications Com ments nebivolol 10 mg tablet active TAKE 1 TABLET DAILY Juan Renee Vitamin D3 25 mcg (1,000 unit) tablet active Take 1 tablet by mouth once a day Christelle Taylor vitamin H36-dtiil acid unspecified unspecified active Take 1 tablet by mouth once a day Christelle Taylor Maximum Red Krill [place]-3 unspecified unspecified active Take 1 capsule by mouth once a day Christelle Taylor Vitamin C unspecified unspecified active Take 1 tablet by mouth once a day Christelle Taylor zinc acetate unspecified unspecified active Take 1 capsule by mouth once a day Christelle Taylor Bystolic 10 mg tablet completed Take 1 tablet by mouth once a day - Sade Tomlin metoprolol succinate 50 mg tablet extended release 24 hr completed Take 1 1/2 tablet by mouth once a day - Abran Beach MD cetirizine 10 mg tablet active Abran Beach MD triamterene-hydr ochlorothiazid 37.5-25 mg tablet completed 1 tablet once a day - Robert Ayala levothyroxine 50 mcg tablet active 1 tablet once a day Abran Beach MD EQ COMPLETE MULTIVITAMIN-ERLIN LT TABS active 1 tablet once a day Abran Beach MD Xanax 0.25 mg tablet completed 0.5 tablet as needed - Abran Beach MD metoprolol tartrate 50 mg tablet completed 1 tablet once a day - Abran Beach MD Nexium 40 mg capsule,delayed release(DR/EC) active 1 capsule once a day Abran Beach MD SOCIAL HISTORY Date Observation Value Provider smoking status Never smoker Lurdes Russell smoking status Never smoker Justina Amaro smoking status Never smoker Christelle bell number of grandchildren Luis Aranda MD smoking status Never smoker Christelle bell smoking status Never smoker Latrice Edwards and smoking status Never smoker Latrice Edwards and smoking status Never smoker Kait Alcarazu robert number of grandchildren Abran Beach MD social history E&M Patient has n ever smoked. Smoking History: Sean vieyra has never smoked. Abran Beach MD social history reviewed E&M revi ewed - no changes required Abran Beach MD smoking status Never smoker Rehana gerardo social history reviewed E&M revi ewed - no changes required Abran Beach MD smoking status Never smoker Kelley Mary Beth kennedy social history reviewed E&M revi ewed - no changes required Abran Beach MD smoking status Never smoker Robert Goldberg smoking status Never smoker Abran Beach MD social history reviewed E&M revi ewed - no changes required Abran Beach MD social history E&M Patient has n ever smoked. Smoking History: P jarrell has never smoked. Abran Beach MD social history reviewed E&M revi ewed - no changes required Abran Beach MD smoking status Never smoker Abran Beach MD FUNCTIONAL STATUS Date Observation Value Provider HRA, CV Assess/Plan, Angina (inactive) Management Plan continue current therapy Luis Aranda MD HRA, CV Assess/Plan, Angina (inactive) Management Plan continue current therapy Luis Aranda MD FAMILY HISTORY Family Member Condition Father Family History of Co ngestive Heart Failure: Father Family History of Co ronary Artery Disease: Father Family History of Hy pertension: Mother Family History of Co ronary Artery Disease: Mother Family History of Di abetes: INSURANCE PROVIDERS Payer name Policy type / Coverage type [place] [employer] party ID [facility] [id number] 1 ADVANCE DIRECTIVES Name Date DISCUSSED - NO DECISION MADE TREATMENT PLAN Date Name Performer [id number],C, improved. Tresa Nalluri VEGETABLE SORTER [id number],C, H er updated medication list for this problem includes: Nexium 40 Mg Capsule,delayed Release(dr/ec) (Esomeprazole magnesium) ..... 1 capsule once a day Tresa Nalluri VEGETABLE SORTER [id number],C, B P today: 140/73 P rior BP: 129/-1 (10/18/2022) Her updated medication list for this problem includes: Nebivolol 10 Mg Tablet (Nebivolol) ..... Take 1 tablet daily Tresa Nalluri VEGETABLE SORTER [id number],C, S he has been walking and changing her eating habits and has lost 11lbs and still going. Tresa Nalluri VEGETABLE SORTER [id number],C, n t bnp 218 m uch improved Tresa Nalluri VEGETABLE SORTER [id number],C, T race edema, improved e levates u ses Knee sleeve w alks a lot venous dopplers showed 1 . No evidence of a deep vein thrombosis of the lower extremities bilaterally. 2 . Significant venous insufficiency of the great saphenous vein bilaterally. 3 . Significant venous insufficiency of the small saphenous vein bilaterally. hold off venous occlusion and stay with conservative rx Tresa Nalluri REMBERTO [id number],C, o cc Her updated medication list for this problem includes: Nebivolol 10 Mg Tablet (Nebivolol) ..... Take 1 tablet daily Tresa Nalluri REMBERTO [id number],C,n t bnp 218 m uch improved [facility] Manoj ANN [id number],C,wc [facility] Davide s [id number],C,2 + edema e levates u ses coprssion w alks a lot check venous dopplers as this appears to be affecting her a lot [facility] Manoj ANN [id number],C,o cc [facility] Manoj ANN [id number],B, Beata Jiames St art REMBERTO [id number],C, S he has been walking and changing her eating habits and has lost 11lbs and still going. Beata Jay NP [id number],C, B P today: 136/80 P rior BP: 130/72 (12/14/2021) Labs Reviewed: C reat: 0.82 (12/16/2021) C hol: 199 (09/14/2021) Beata Jay NP [id number],C, D enies Beata Jay NP [id number],B, r ethel u ses stockings had lymphoscintigraphy in 2019 Patent lymphatic system bilaterally with evidence of more breezy activity i n the right than the left but with collateral lymphatics in the right l ower extremity below the knee level. w as referred to Dr Zuniga at this time she will continue with conservative treatment Beata Jay NP [id number],C, B P today: 130/72 P rior BP: 140/80 (09/14/2021) Labs Reviewed: C hol: 199 (09/14/2021) m uch improved Beata Jay VEGETABLE SORTER [id number],C,has been losi ng weight and walking Beata Jay VEGETABLE SORTER [id number],C, D enies Beata Jay VEGETABLE SORTER [id number],C, r eally wc u ses stockings Beata Jay VEGETABLE SORTER [id number],C, suspect vasovagal a gree with increased fluid hydration e chocardiogram has been done, stress test to be done this Sunday Had nuclear stress test which was negative from an echocardiographic standpoint - EKg did have ischemic changes. CCS 218 Beata Jay VEGETABLE SORTER [id number],C,r pm a vg 139/74 Luis Manoj ANN [id number],C,r pm shows average bp 141/73 w ill d/w pt at next appt Luis Manoj ANN [id number],C,r eally wc u ses stockings Luis Manoj ANN [id number],C, B P today: 140/80 P rior BP: 150/80 (08/17/2021) will change her metoprolol to bystolic 10mg daily Beata Jay VEGETABLE SORTER [id number],C, suspect vasovagal a gree with increased fluid hydration e chocardiogram has been done, stress test to be done this Sunday Had nuclear stress test which was negative from an echocardiographic standpoint - EKg did have ischemic changes. CCS 218 Beata Jay VEGETABLE SORTER [id number],C, B P today: 150/80 P rior BP: 171/68 (06/15/2021) Beata Jay VEGETABLE SORTER [id number],C, D enies Beata Jay VEGETABLE SORTER [id number],C, H er second problems is edema around her ankles which gets worse in pms and is oftn better in am a fter being recumbent. She has been wearing compression stockings for 3 years with partial benefit. 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 I reassured her re cvi - advised that the risk of any adverse outcome is zero D iscussed conservative measures including thigh high 20-30mmHg compression stockings, leg elevation, and ambulation Beata Johnstonrobert SR [id number],C, suspect vasovagal a gree with increased fluid hydration w ill check echo and stress echo and if these are neg will recommend tilt test echocardiogram has been done, stress test to be done this Sunday Beata Jaimes Pierre SR [id number],C,b p high w ill do rpm Discussion of benefits for remote patient monitoring took place. Patient gives consent for remote monitoring of physiologic parameters including, but not limited to, weight, blood pressure, pulse oximetry, respiratory flow rate. Luisrenée Aranda MD [id number],C,H er second problems is edema around her ankles which gets worse in pms and is oftn better in am a fter being recumbent. She has been wearing compression stockings for 3 years with partial benefit. 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 I reassured her re cvi - advised that the risk of any adverse outcome is zero D iscussed conservative measures including thigh high 20-30mmHg compression stockings, leg elevation, and ambulation Luisrenée Aranda MD [id number],C,S he has issues with episodes of near syncope and her second issue of that of LE edema. O n 05/24 she was in her car and felt that she was going to pass out - did not pass out and this sensation lasted for 20 minutes. A week later she was at [employer] and the same feeling came on again and became diaphoretic. She managed to get back to her car and had water and mits (which she keeos in her car) _ when driving back home she had emesis and later at home had diarrhea also. She called her daughter and was taken to=er where a ct scan showed an abnormality and was to have endoscopy but this was cancelled for cardiac reasons. S he has had one prior similar episode 3-4 years ago at work. S he denies any associated palpitations, chest pains, sob, shaking, bowel or bladder incontinence. H er second problems is edema around her ankles which gets worse in pms and is oftn better in am a fter being recumbent. She has been wearing compression stockings for 3 years with partial benefit. 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 suspect vasovagal a gree with increased fluid hydration w ill check echo and stress echo and if these are neg will recommend tilt test Manoj ANN [id number],Aleks Gerardo MD [id number],SAbran MD [id number],S, B P today: 124/86 P rior BP: 116/68 (06/25/2015) The following medications were removed from the medication list: Triamterene-hydrochlorothiazid 37.5-25 Mg Tablet (Triamterene-hydrochlorothiazid) ..... 1 tablet once a day Metoprolol Tartrate 50 Mg Tablet (Metoprolol tartrate) ..... 1 tablet once a day Her updated medication list for this problem includes: Metoprolol Succinate 50 Mg Tablet Extended Release 24 Hr (Metoprolol succinate) ..... Take 1 1/2 tablet by mouth once a day Abran Beach MD [id number],W, T wo recnet episodes. Went to ER at [facility]. Workup was unremarkable. Will increase her toprol to 1.5 tabs/75mg daily and advisde her to stay well hydrated. Abran Beach MD Cardiology: improved. Tresa Walls NP Cardiology: H er updated medication list for this problem includes: Nexium 40 Mg Capsule,delayed Release(dr/ec) (Esomeprazole magnesium) ..... 1 capsule once a day Tresapatito Reesluri REMBERTO Cardiology: B P today: 140/73 P rior BP: 129/-1 (10/18/2022) Her updated medication list for this problem includes: Nebivolol 10 Mg Tablet (Nebivolol) ..... Take 1 tablet daily Tresa Walls NP Cardiology: S he has been walking and changing her eating habits and has lost 11lbs and still going. Tresa Reesluchris SR Cardiology: n t bnp 218 m uch improved Tresa Reesluri REMBERTO Cardiology: T race edema, improved e levates u ses Knee sleeve w alks a lot venous dopplers showed 1 . No evidence of a deep vein thrombosis of the lower extremities bilaterally. 2 . Significant venous insufficiency of the great saphenous vein bilaterally. 3 . Significant venous insufficiency of the small saphenous vein bilaterally. hold off venous occlusion and stay with conservative rx Luis Aranda MD Cardiology: o cc Her updated medication list for this problem includes: Nebivolol 10 Mg Tablet (Nebivolol) ..... Take 1 tablet daily Tresa Reesluchris SR Cardiology:nt bnp 21 8 m uch improved Luis Aranda MD Cardiology:wc Luis Aranda MD Cardiology:2+ edema e levates u ses coprssion w alks a lot check venous dopplers as this appears to be affecting her a lot Luis Aranda MD Cardiology:occ lh Luis Aranda MD Cardiology Beata Jay NP Cardiology: S he has been walking and changing her eating habits and has lost 11lbs and still going. Beata Jay NP Cardiology: B P today: 136/80 P rior BP: 130/72 (12/14/2021) Labs Reviewed: C reat: 0.82 (12/16/2021) C hol: 199 (09/14/2021) Beata Jay VEGETABLE SORTER Cardiology: D enies Beata Jay VEGETABLE SORTER Cardiology: marysol christopher u ses stockings had lymphoscintigraphy in 2019 Patent lymphatic system bilaterally with evidence of more breezy activity i n the right than the left but with collateral lymphatics in the right l ower extremity below the knee level. w as referred to Dr Zuniga at this time she will continue with conservative treatment Beata Johnstone VEGETABLE SORTER Cardiology: B P today: 130/72 P rior BP: 140/80 (09/14/2021) Labs Reviewed: C hol: 199 (09/14/2021) m uch improved Beata Jaimes Jay VEGETABLE SORTER Cardiology:has been losing weigh t and walking Beata Johnstone VEGETABLE SORTER Cardiology: Aleks cole Beata Theodore Jay VEGETABLE SORTER Cardiology: marysol christopher u ses stockings Beata Johnstone VEGETABLE SORTER Cardiology: suspect vasovagal a gree with increased fluid hydration e chocardiogram has been done, stress test to be done this Sunday Had nuclear stress test which was negative from an echocardiographic standpoint - EKg did have ischemic changes. CCS 218 Beata Johnstone VEGETABLE SORTER :rpm a vg 139/74 Manoj ANN :rpm shows average b p 141/73 w ill d/w pt at next appt Manoj ANN Cardiology:really wc u ses stockings Manoj ANN Cardiology: B P today: 140/80 P rior BP: 150/80 (08/17/2021) will change her metoprolol to bystolic 10mg daily Beata Johnstone VEGETABLE SORTER Cardiology: suspect vasovagal a gree with increased fluid hydration e chocardiogram has been done, stress test to be done this Sunday Had nuclear stress test which was negative from an echocardiographic standpoint - EKg did have ischemic changes. CCS 218 Beata Theodore Jay VEGETABLE SORTER Cardiology: B P today: 150/80 P rior BP: 171/68 (06/15/2021) Beata A Jay VEGETABLE SORTER Cardiology: D enies Beata A Pierre SR Cardiology: H er second problems is edema around her ankles which gets worse in pms and is oftn better in am a fter being recumbent. She has been wearing compression stockings for 3 years with partial benefit. 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 I reassured her re cvi - advised that the risk of any adverse outcome is zero D iscussed conservative measures including thigh high 20-30mmHg compression stockings, leg elevation, and ambulation Beata Jaimes Pierre SR Cardiology: suspect vasovagal a gree with increased fluid hydration w ill check echo and stress echo and if these are neg will recommend tilt test echocardiogram has been done, stress test to be done this Sunday Beata Theodore Pierre SR Cardiology:bp high w ill do rpm Discussion of benefits for remote patient monitoring took place. Patient gives consent for remote monitoring of physiologic parameters including, but not limited to, weight, blood pressure, pulse oximetry, respiratory flow rate. Luis Aranda MD Cardiology:Her secon d problems is edema around her ankles which gets worse in pms and is oftn better in am a fter being recumbent. She has been wearing compression stockings for 3 years with partial benefit. 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 I reassured her re cvi - advised that the risk of any adverse outcome is zero D iscussed conservative measures including thigh high 20-30mmHg compression stockings, leg elevation, and ambulation Luis Aranda MD Cardiology:She has i ssues with episodes of near syncope and her second issue of that of LE edema. O n 05/24 she was in her car and felt that she was going to pass out - did not pass out and this sensation lasted for 20 minutes. A week later she was at [employer] and the same feeling came on again and became diaphoretic. She managed to get back to her car and had water and mits (which she keeos in her car) _ when driving back home she had emesis and later at home had diarrhea also. She called her daughter and was taken to=er where a ct scan showed an abnormality and was to have endoscopy but this was cancelled for cardiac reasons. S he has had one prior similar episode 3-4 years ago at work. S he denies any associated palpitations, chest pains, sob, shaking, bowel or bladder incontinence. H er second problems is edema around her ankles which gets worse in pms and is oftn better in am a fter being recumbent. She has been wearing compression stockings for 3 years with partial benefit. 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 suspect vasovagal a gree with increased fluid hydration w ill check echo and stress echo and if these are neg will recommend tilt test Manoj ANN Cardiology: D kelsey Beach MD Cardiology Abran Beach MD Cardiology: B P today: 124/86 P rior BP: 116/68 (06/25/2015) The following medications were removed from the medication list: Triamterene-hydrochlorothiazid 37.5-25 Mg Tablet (Triamterene-hydrochlorothiazid) ..... 1 tablet once a day Metoprolol Tartrate 50 Mg Tablet (Metoprolol tartrate) ..... 1 tablet once a day Her updated medication list for this problem includes: Metoprolol Succinate 50 Mg Tablet Extended Release 24 Hr (Metoprolol succinate) ..... Take 1 1/2 tablet by mouth once a day Abran Beach MD Cardiology: T wo recnet episodes. Went to ER at [facility]. Workup was unremarkable. Will increase her toprol to 1.5 tabs/75mg daily and advisde her to stay well hydrated. Abran Beach MD Cardiology: B P today: 116/68 P rior BP: 151/79 (01/22/2015) Abran Beach MD Cardiology Abran Beach MD fu:Mild SOB upon exertion Abran Beach MD fu:BP 151/79 Abran Beach MD fu:Normal carotid US (04/24/2014 ) Abran Beach MD Date Name Venous Doppler Bilat eral LE - Reflux Vitamin D, 25-Hydrox y PROBNP, N TERMINAL TSH, free T4, total T3 COMPREHENSIVE METABO LIC PANEL, W/EGFR Microalb/Creatinine Urine, Random LIPID PANEL CT, Coronary Calcium Score Complete Echo Stress Echo Venous Doppler Bilat eral LE - Reflux EKG Arterial Duplex Bi-L ower EX Complete Echo Carotid Duplex Bilat eral Complete Echo HISTORY OF PROCEDURES Procedure Date Procedure Name Provider Procedure Notes S tatus EKG Luis Aranda MD completed CT- Coronary CA score Luis Aranda MD completed SNOMED-CT: 541307888 [id number] Current Medications Documented Abran Beach MD completed SNOMED-CT: 43383731 Physical Exam, Performed: Pulse Exam of Foot Abran Beach MD completed EKG Abran Beach MD completed EKG Abran Beach MD completed
--- OUTSIDE RECORDS SUMMARY | 2024-09-24 15:42 | XMS_ITS | CONTINUITY OF CARE DOCUMENT ---
Author Name new wolff Address Unknown Organization [facility] Address [address] [place] [address] Phone [phone] Care Team Providers Care Pile Driving Supervisor Name Role Phone Manoj ANN, Luis Unavailable [phone] ISIS WATSON MD Unavailable [phone] ISIS WATSON MD Unavailable PROBLEMS Condition Status Date Provider Notes Venous insufficiency active Baltazar kennedy Dx per Dr. Watson Family History of Hypertension: completed - Abran Beach MD Other symptoms involving cardiovascular system completed - Abran Beach MD Lightheadedness active Abran Beach MD HTN essential active Abran Beach MD Hypothyroidism active Abran Beach MD GERD active Abran Beach MD Obesity active Abran Beach MD Shortness of breath active Abran Beach MD Near syncope active Abran Beach MD Coronary atherosclerosis active Luis Aranda MD ENCOUNTERS Date Type Provider Location Encounter Diag nosis 2 - 2 In-person encounter Office Visit Luis Aranda MD [facility] 2 - 6 In-person encounter Office Visit Luis Aranda MD [facility] Coronary atherosclerosis 8 - 8 In-person encounter Office Visit Luis Aranda MD [facility] 8 - 0 In-person encounter Office Visit Luis Aranda MD [facility] 9 - 2 In-person encounter Office Visit Luis Aranda MD [facility] 9 - 1 In-person encounter Office Visit Luis Aranda MD [facility] 8 - 9 In-person encounter Office Visit Luis Aranda MD [facility] 2 - 3 In-person encounter Office Visit Abran Beach MD [facility] Family History of Hypertension:Other symptoms involving cardiovascular systemNear syncope 8 - 8 In-person encounter Office Visit Abran Beach MD [facility] 7 - 7 In-person encounter Office Visit Abran Beach MD [facility] Shortness of breath 4 - 4 In-person encounter Office Visit Abran Beach MD [facility] 9 - 9 In-person encounter Office Visit Abran Beach MD [facility] LightheadednessHTN essentialHypothyroidismGERDObesity VITAL SIGNS Date Observation [...] Aranda MD blood pressure, cuff size large Or samina [place] blood pressure, diastolic 80 mm[Hg] Or samina [place] blood pressure, systolic 140 mm[Hg] [facility] helle [place] oxygen saturation, oximetry 98 % Latrice Callahan respiratory rate E&M 16 /min Aaliyah Edwardsand pulse rate 79 /min Latrice motta weight E&M 170 [lb_av] Latrice motta height E&M 62.5 [in_i] Latrice motta Body Mass Index (Ratio) 30.41 kg/m2 [facility] renée Aranda MD blood pressure, cuff size large Or samina [place] blood pressure, diastolic 80 mm[Hg] Or samina [place] blood pressure, systolic 150 mm[Hg] [facility] helle [place] oxygen saturation, oximetry 97 % Latrice Callahan [...] blood pressure, cuff size large Ca therine Ingram blood pressure, diastolic 86 mm[Hg] Ca therine Neftaly blood pressure, systolic 124 mm[Hg] Cat herine Ingram height E&M 62.5 [in_i] Rehana Ingram oxygen saturation, oximetry 98 % Rehana Neftaly respiratory rate E&M 16 /min Catheri ne Neftaly pulse rate 92 /min Rehana Ingram weight E&M 172 [lb_av] Rehana Ingram blood pressure, diastolic 68 mm[Hg] Me weldonsa [...] cholesterol, non-HDL, total 153 mg/dL [facility], [place] [address] HDL CHOLESTEROL 46 mg/dL [facility] >=40 Normal , [place] [address] triglyceride, serum, fasting 148 mg/dL [facility] <=149 Normal , [place] [address] cholesterol, serum 199 mg/dL [facility] 30-199 Normal , [place] [address] HISTORY OF MEDICATION USE Medication Status Instructions Dates Provider Indications Com ments nebivolol 10 mg tablet active TAKE 1 TABLET DAILY Juan Renee Vitamin D3 25 mcg (1,000 unit) tablet active Take 1 tablet by mouth once a day Christelle Taylor vitamin Z86-hbuvs acid unspecified unspecified active Take 1 tablet by mouth once a day Christelle Taylor Maximum [place]-3 unspecified unspecified active Take 1 capsule by [...] MD cetirizine 10 mg tablet active Abran Baech MD triamterene-hydr ochlorothiazid 37.5-25 mg tablet completed [...] Payer name Policy type / Coverage type [place] [employer] party ID [facility] [id number] 1 ADVANCE DIRECTIVES Name Date DISCUSSED - NO DECISION MADE TREATMENT PLAN Date Name Performer [id number],C, improved. Tresa Nalluri MINI LAB OPERATOR [id number],C, H er updated medication list for this problem includes: Nexium 40 Mg Capsule,delayed Release(dr/ec) (Esomeprazole magnesium) ..... 1 capsule once a day Tresa Nalluri MINI LAB OPERATOR [id number],C, B P today: 140/73 P rior BP: 129/-1 (10/18/2022) Her updated medication list for this problem includes: Nebivolol 10 Mg Tablet (Nebivolol) ..... Take 1 tablet daily Tresa Nalluri MINI LAB OPERATOR [id number],C, S he has been walking and changing her eating habits and has lost 11lbs and still going. Tresa Nalluri MINI LAB OPERATOR [id number],C, n t bnp 218 m uch improved Tresa Nalluri MINI LAB OPERATOR [id number],C, T race edema, improved e levates u [...] stay with conservative rx Tresa Nalluri REMBERTO [id number],C, o cc Her updated medication list for this problem includes: Nebivolol 10 Mg Tablet (Nebivolol) ..... Take 1 tablet daily Tresa Nalluri REMBERTO [id number],C,n t bnp 218 m uch improved [facility] Manoj ANN [id number],C,wc [facility] [place] [facility] [id number],C,2 + edema e levates u ses coprssion w alks a lot check venous dopplers as this appears to be affecting her a lot [facility] Manoj NAN [id number],C,o cc [facility] Manoj ANN [id number],B, Beata Jaimes St art REMBERTO [id number],C, S he has been walking and changing her eating habits and has lost 11lbs and still going. Beata Jay NP [id number],C, B P today: 136/80 P rior BP: 130/72 (12/14/2021) Labs Reviewed: C reat: 0.82 (12/16/2021) C hol: 199 (09/14/2021) Beata Jay NP [id number],C, D enies Beata Jay NP [id number],B, r ethel u ses stockings had lymphoscintigraphy in 2019 Patent lymphatic system bilaterally with evidence of more breezy activity i n the right than the left but with collateral lymphatics in the right l ower extremity below the knee level. w as referred to Dr Zuniga at this time she will continue with conservative treatment Beata Jay NP [id number],C, B P today: 130/72 P rior BP: 140/80 (09/14/2021) Labs Reviewed: C hol: 199 (09/14/2021) m uch improved Beata Jay MINI LAB OPERATOR [id number],C,has been losi ng weight and walking Beata Jay MINI LAB OPERATOR [id number],C, D enies Beata Jay MINI LAB OPERATOR [id number],C, r eally wc u ses stockings Beata Jay MINI LAB OPERATOR [id number],C, suspect vasovagal a gree with increased fluid hydration e chocardiogram has been done, stress test to be done this Sunday Had nuclear stress test which was negative from an echocardiographic standpoint - EKg did have ischemic changes. CCS 218 Beata Jay MINI LAB OPERATOR [id number],C,r pm a vg 139/74 Luis Manoj ANN [id number],C,r pm shows average bp 141/73 w ill d/w pt at next appt Luis Manoj ANN [id number],C,r eally wc u ses stockings Luis Manoj ANN [id number],C, B P today: 140/80 P rior BP: 150/80 (08/17/2021) will change her metoprolol to bystolic 10mg daily Beata Jay MINI LAB OPERATOR [id number],C, suspect vasovagal a gree with increased fluid hydration e chocardiogram has been done, stress test to be done this Sunday Had nuclear stress test which was negative from an echocardiographic standpoint - EKg did have ischemic changes. CCS 218 Beata Jay MINI LAB OPERATOR [id number],C, B P today: 150/80 P rior BP: 171/68 (06/15/2021) Beata Jay MINI LAB OPERATOR [id number],C, D enies Beata Jay MINI LAB OPERATOR [id number],C, H er second problems is edema around her ankles which gets worse in pms and is oftn better in am a fter being recumbent. She has been wearing compression stockings for 3 years with partial benefit. 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 I reassured her re cvi - advised that the risk of any adverse outcome is zero D iscussed conservative measures including thigh high 20-30mmHg compression stockings, leg elevation, and ambulation Beata Johnstonrobert [place] [id number],C, suspect vasovagal a gree with increased fluid hydration w ill check echo and stress echo and if these are neg will recommend tilt test echocardiogram has been done, stress test to be done this Sunday Beata Jaimes Pierre [place] [id number],C,b p high w ill do rpm Discussion of benefits for remote patient monitoring took place. Patient gives consent for remote monitoring of physiologic parameters including, but not limited to, weight, blood pressure, pulse oximetry, respiratory flow rate. Luisrenée Aranda MD [id number],C,H er second problems is edema around her ankles which gets worse in pms and is oftn better in am a fter being recumbent. She has been wearing compression stockings for 3 years with partial benefit. 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 I reassured her re cvi - advised that the risk of any adverse outcome is zero D iscussed conservative measures including thigh high 20-30mmHg compression stockings, leg elevation, and ambulation Luisrenée Aranda MD [id number],C,S he has issues with episodes of near [...] with partial benefit. 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 suspect vasovagal a gree with increased fluid hydration w ill check echo and stress echo and if these are neg will recommend tilt test Manoj ANN [id number],Aleks Gerardo MD [id number],SAbran MD [id number],S, B P today: 124/86 P rior BP: [...] mouth once a day Abran Beach MD [id number],W, T wo recnet episodes. Went to ER at [facility]. Workup was unremarkable. Will increase her toprol [...] (12/16/2021) C hol: 199 (09/14/2021) Beata Jay MINI LAB OPERATOR Cardiology: D enies Beata Jay MINI LAB OPERATOR Cardiology: marysol christopher u ses stockings had lymphoscintigraphy in 2019 Patent lymphatic system bilaterally with evidence of more breezy activity i n the right than the left but with collateral lymphatics in the right l ower extremity below the knee level. w as referred to Dr Zuniga at this time she will continue with conservative treatment Beata Johnstone MINI LAB OPERATOR Cardiology: B P today: 130/72 P rior BP: 140/80 (09/14/2021) Labs Reviewed: C hol: 199 (09/14/2021) m uch improved Beata Jaimes Jay MINI LAB OPERATOR Cardiology:has been losing weigh t and walking Beata Johnstone MINI LAB OPERATOR Cardiology: Aleks cole Beata Theodore Jay MINI LAB OPERATOR Cardiology: marysol christopher u ses stockings Beata Jonhstone MINI LAB OPERATOR Cardiology: suspect vasovagal a gree with increased fluid hydration e chocardiogram has been done, stress test to be done this Sunday Had nuclear stress test which was negative from an echocardiographic standpoint - EKg did have ischemic changes. CCS 218 Beata Johnstone MINI LAB OPERATOR :rpm a vg 139/74 Manoj ANN :rpm shows average b p 141/73 w ill d/w pt at next appt Manoj ANN Cardiology:really wc u ses stockings Manoj ANN Cardiology: B P today: 140/80 P rior BP: 150/80 (08/17/2021) will change her metoprolol to bystolic 10mg daily Beata Johnstone MINI LAB OPERATOR Cardiology: suspect vasovagal a gree with increased fluid hydration e chocardiogram has been done, stress test to be done this Sunday Had nuclear stress test which was negative from an echocardiographic standpoint - EKg did have ischemic changes. CCS 218 Beata Theodore Jay MINI LAB OPERATOR Cardiology: B P today: 150/80 P rior BP: 171/68 (06/15/2021) Beata A Jay MINI LAB OPERATOR Cardiology: D enies Beata A Pierre SR Cardiology: H er second problems is edema around her ankles which gets worse in pms and is oftn better in am a fter being recumbent. She has been wearing compression stockings for 3 years with partial benefit. 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 [...] with partial benefit. 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 [...] with partial benefit. 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 [...] wo recnet episodes. Went to ER at [facility]. Workup was unremarkable. Will increase her toprol [...] CA score Luis Aranda MD completed SNOMED-CT: [id number] Current Medications Documented Abran Beach MD completed SNOMED-CT: [id number] Physical Exam, Performed: Pulse Exam of Foot Abran Beach MD completed EKG Abran Beach MD completed EKG Abran Beach MD completed
--- OUTSIDE RECORDS SUMMARY | 2024-09-24 15:42 | XMS_ITS | Data Portability ---
Author Organization [employer], [facility] Address [address] [address] Care Team Providers Care Expert Medical Writer Name Role Phone ISIS WATSON Primary Care Provider Unavailabl e Assessment No assessment recorded. Plan of Treatment Reminders Order Date Submit Date Provider Last Modified By Organization Details Last Modified Time Details Appointments None recorded. Lab None recorded. Referral None recorded. Procedures None recorded. Surgeries None recorded. Imaging XR, hip, unilateral - rm 15 2024 025 [email or web address] Not available 5 15:26:45 MRI, lumbar spine, w/o contrast - R L5/S1 Radiculopat hy pain x5 mon, worsening. failed tylenol, PT. no previous surgeries 2023 024 IRA Not available 4 09:12:38 XR, lumbar spine 2023 024 [email or web address] Not available 4 15:24:45 Medication Orders Medrol (Spencer) 4 mg tablets in a dose pack 2023 024 [facility] #[id number], [address], [place], [place], [phone], 4 12:49:31 tizanidine 4 mg tablet 2023 024 [facility] #[id number], [address], [place], [place], [phone], 4 12:49:31 Patient TargetsNo targets recorded. Patient InstructionsNo instructions recorded. Reason for Referral None Reported. Results Created Date Observation Date Name Description Value Unit Range Abnormal Flag Note LastModifiedBy Organization Detail LastModifiedTime 12/21/1912/19/2023 MRI, lumba r spine , w/o contr ast No observ ation record ed. [place] [address] [facility] [address], [place], [address], 12/24/2023 14:13:44 Result Notes None recorded. Problems Name Problem SNOMED Code Status Onset Date Resolution Date Notes Provider Name and Address Organization Details Recorded Time Knee pain Active Yamilet Mancia null, [place], [facility] 4 09:49:30 Localized, primary osteoarthritis 453652542 Active Dave Herr null, [employer], [facility] 5 15:53:25 Foot pain 13603864 Active Janna Medinaofpatrica null, [employer], [facility] 5 11:01:01 Shoulder pain 41058019 Active Dave Herr null, [employer], [facility] 6 12:04:02 Inflammation of joint of shoulder region 203739685 Active Dave Herr null, [employer], [facility] 6 12:04:02 Anterior knee pain 873323651 Active Dave Herr null, [employer], [facility] 6 12:04:02 Problem Notes None recorded. Procedures Surgical History Date Name Laterality Status Provider Name and Address Organization Details Recorded Time 3 Heart Surgery completed Regina Machuca [place], [facility] 08/30/2023 12:25:42 7 [place] [address] [place], [place], [address], [place], [facility] 09/29/2016 17:55:35 4 Generic [place] [address] [address] [facility] [address], [place], [address], [place], [facility] 10/03/2013 16:38:28 Imaging Results Imaging Date Name Status LastModified by Organiz ation Details LastModified Time 12/19/2023 MRI, lumbar spine, w/o contrast completed [address] [facility] [address] [facility] [address], [place], [address], 12/24/2023 14:13:44 Procedure Notes None recorded. Medical Equipment None Reported. Allergies Allergen ID Allergen Name Allergen Category Reaction Reaction Severity Criticality Documentation Date Start Date Code Code System Note Provider Name and Address Organization Details Recorded Time Substance with sulfonami de structure and antibacte rial mechanism of action (substanc e) medicatio n Not available Not available Not available 09/12/2013 14267 8003 SNOMED Dave Herr [facility] 4 11:35:27 16567 acetamino phen / oxycodone medicatio n nausea Not available Not available 09/12/2013 26886 3 RxNorm Dave Herr [facility] 4 11:35:27 01587 ethinyl estradiol / levonorge strel medicatio n Not available Not available Not available 11/30/2022 28805 8 RxNorm Daljit Martinez [facility] 3 10:26:35 Medications Name Sig Start Date Stop Date Status Note LastModified by Organization Details LastModified Time Prescriptio n - New 01/15 completed Not Available Not Available Not Available compounded medication apply 1gm topically to upper inner thigh once daily in AM 01/15 completed Not Available Not Available Not Available losartan 50 mg tablet TAKE 1 TABLET BY MOUTH DAILY active Not Available Not Available No t Available amoxicillin 500 mg capsule TAKE 1 CAPSULE BY MOUTH THREE TIMES DAILY FOR 10 DAYS 07/21 completed Not Available Not Available Not Available Depo-Medrol 40 mg/mL suspension for injection Take by injection route. 01/15 completed Not Available Not Available Not Available clindamycin HCl 300 mg capsule TAKE 1 CAPSULE BY MOUTH EVERY 6 HOURS FOR 10 DAYS 07/21 completed Not Available Not Available Not Available cetirizine 10 mg tablet TAKE 1 TABLET BY MOUTH DAILY 12/21 completed Not Available Not Available Not Available azithromyci n 250 mg tablet 07/21 completed Not Available Not Available Not Available tizanidine 4 mg tablet TAKE 1 TABLET BY MOUTH EVERY DAY AT BEDTIME FOR 14 DAYS 07/21 completed Not Available Not Available Not Available fluconazole 150 mg tablet TAKE 1 TABLET BY MOUTH 1 TIME 07/21 completed Not Available Not Available Not Available metoprolol succinate ER 50 mg tablet,exte nded release 24 hr 12/21 completed Not Available Not Available Not Available hydrocodone 5 mg-acetamin ophen 325 mg tablet Take 1 tablet every 4-6 hours by oral route as needed. 01/15 completed Not Available Not Available Not Available clindamycin HCl 150 mg capsule 12/21 completed Not Available Not Available Not Available Nexium 40 mg capsule,del ayed release Take 1 capsule every day by oral route. 01/15 completed Not Available Not Available Not Available clopidogrel 75 mg tablet TAKE 1 TABLET BY MOUTH EVERY DAY active Not Available Not Available No t Available tramadol 50 mg tablet Take 1 tablet every 6 hours by oral route as needed for 7 days. 07/21 completed Not Available Not Available Not Available triamcinolo ne acetonide 0.1 % topical cream 08/28 completed Not Available Not Available Not Available terbinafine HCl 250 mg tablet TAKE 1 TABLET BY MOUTH DAILY X 7 DAYS THEN OFF 3 WEEKS THEN REPEAT PATTERN FOR 4 MONTHS 07/21 completed Not Available Not Available Not Available alprazolam 0.25 mg tablet TAKE 1 TABLET BY MOUTH TWICE DAILY NEEDED active Not Available Not Available No t Available cephalexin 500 mg capsule TAKE 1 CAPSULE BY MOUTH EVERY 8 HOURS 07/21 completed Not Available Not Available Not Available Synthroid 50 mcg tablet Take 1 tablet every day by oral route. 07/21 completed Not Available Not Available Not Available triamterene 37.5 mg-hydrochl orothiazide 25 mg tablet 12/21 completed Not Available Not Available Not Available Pepcid 40 mg tablet 2 mg every day by oral route. active Not Available Not Available No t Available diclofenac sodium 75 mg tablet,nicholas yed release Take 1 tablet twice a day by oral route. 01/15 completed Not Available Not Available Not Available mupirocin 2 % topical ointment APPLY TOPICALLY TO THE AFFECTED AREA TWICE DAILY 07/21 completed Not Available Not Available Not Available furosemide 20 mg tablet TAKE 1 TABLET BY MOUTH DAILY active Not Available Not Available No t Available lorazepam 1 mg tablet TAKE 1 TABLET BY MOUTH PRIOR TO PROCEDURE 07/21 completed Not Available Not Available Not Available methylpredn isolone 4 mg tablets in a dose pack FOLLOW PACKAGE DIRECTION S 07/21 completed Not Available Not Available Not Available Cipro 250 mg tablet Take 1 tablet every 12 hours by oral route. 01/15 completed Not Available Not Available Not Available hydrocortis one 2.5 % topical ointment APPLY TO EYELID 2 TO 3 TIMES DAILY 12/21 completed Not Available Not Available Not Available fluticasone propionate 50 mcg/actuati on nasal spray,suspe nsion 12/21 completed Not Available Not Available Not Available cholecalcif akhil (vitamin D3) 125 mcg (5,000 unit) capsule Take 1 capsule every day by oral route as directed. 01/15 completed Not Available Not Available Not Available amoxicillin 875 mg-potassiu m clavulanate 125 mg tablet TAKE 1 TABLET BY MOUTH TWICE DAILY 07/21 completed Not Available Not Available Not Available escitalopra m 10 mg tablet 12/21 completed Not Available Not Available Not Available Premarin 0.625 mg/gram vaginal cream APPLY 1 GRAM VAGINALLY AT BEDTIME FOR 2 WEEKS THEN USE VAGINALLY 2 TIMES A WEEK DIRECTED active Not Available Not Available No t Available escitalopra m 5 mg tablet TAKE 1 TABLET BY MOUTH EVERY DAY active Not Available Not Available No t Available cod liver oil 2022 active Not Available Not Available Not Avai lable triamterene -hydrochlor othiazid 01/15 completed Not Available Not Available Not Available Fish Oil 12/21 completed Not Available Not Available Not Available alprazolam 12/21 completed Not Available Not Available Not Available multivitami n 12/21 completed Not Available Not Available Not Available Carrie Low Dose Aspirin 2022 active Not Available Not Available Not Avai lable nebivolol 10 mg tablet TAKE 1 TABLET BY MOUTH EVERY DAY active Not Available Not Available No t Available metoprolol succ 50 mg-hydrochl orothiazide 12.5 mg tablet,ext. rel 24 hr Take 1 tablet every day by oral route. 01/15 completed Not Available Not Available Not Available nitrofurant oin 100 mg tablet Take by oral route. 01/15 completed Not Available Not Available Not Available Alive Once Daily Women 50 Plus 07/24 completed Not Available Not Available Not Available Vitals Date Recorded Body height Body mass index (BMI) Body weight Heart rate Systolic blood pressure Diastolic blood pressure Provider Name and Address Organization Details Last Updated DateTime 3 154.94 cm 30.2 kg/m2 29602.7 8 g 66 /min 141 mm[Hg] 71 mm[Hg] Dave Herr [facility] [employer] [facility] 3 11:38:58 Date Recorded Body height Body mass index (BMI) Body weight Provider Name and Address Organization Details Last Updated DateTime 08/30/2023 154.94 cm 30.2 kg/m2 28611.78 g Regina Machuca [facility] [employer] [facility], [facility] 08/30/2023 12:25:15 Date Recorded Body height Heart rate Systolic blood pressure Diastolic blood pressure Provider Name and Address Organization Details Last Updated DateTime 11/29/2023 154.94 cm 69 /min 130 mm[Hg] 71 mm[Hg] Stefani Maki [facility] [employer] [facility], [facility] 11/29/2023 10:38:40 Date Recorded Body height Body mass index (BMI) Body weight Heart rate Systolic blood pressure Diastolic blood pressure Provider Name and Address Organization Details Last Updated DateTime 4 154.94 cm 30.2 kg/m2 00337.7 8 g 74 /min 125 mm[Hg] 65 mm[Hg] Dave Herr [employer] [facility], [facility] 4 11:58:33 Date Recorded Body height Body mass index (BMI) Body weight Heart rate Systolic blood pressure Diastolic blood pressure Provider Name and Address Organization Details Last Updated DateTime 5 156.21 cm 28.8 kg/m2 90999.8 2 g 62 /min 129 mm[Hg] 56 mm[Hg] Dave Herr [employer] [facility] [employer] [facility] 5 11:16:46 Social History Question Answer Notes LastModified by Organizat ion Details LastModified Time Tobacco Smoking Status Never Smoker Not Available [employer] 05/11/2020 03:31:57 What Is Your Level Of Alcohol Consumption? 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 01/15/2019 [id number] Information not available 05/11/2020 Sex: Unknown Functional Status None recorded. Mental Status None recorded. Family History Relationship Description Onset Age of this Age Resolved Age Notes LastModified by Organization Details LastModified Time Father Arthritis Not avail able 09/15/2016 12:34:01 Father Heart disease [email or web address] Not available 09/06 12:34:20 Father Hypercholest erolemia [email or web address] Not available 09/06 12:34:36 Father Hypertensive disorder [email or web address] Not available 09/06 12:35:07 Mother Arthritis Not avail able 09/15/2016 12:34:01 Mother Heart disease [email or web address] Not available 09/06 12:34:20 Mother Diabetes mellitus [email or web address] Not available 09/06 12:34:51 Medical History Condition Response HIV or AIDS N Coronary Artery Disease N Other Cancer N Gout N Kidney Stones N Hyperthyroidism N Breast Cancer N Hernia N Head Trauma/Injury N Lung Cancer N Blood Clots N COPD N Depression N Hypothyroidism N Lung Disease N Pneumonia N Pacemaker N Parkinson's N Anxiety Disorder N Multiple Sprains N Arthritis Y Alcohol / Substance Abuse N Kidney Cancer N Cancer N Stroke N Melanoma N Casimiro Danlos Syndrome (EDS) N Bowel Dysfunction N Neck Injury N Leg or Foot Ulcers N High Cholesterol N Skin Cancer N Liver Disease N Rheumatoid Arthritis N Headaches N Fibromyalgia N Gastric Issues N Concussion N Kidney Disease N Heart Problems N Scoliosis N Chronic use of Pain Medication N Prostate Cancer N Migraines N Thyroid Problems N Alzheimers N DVT N Autoimmune Disorder N Anemia N Multiple Sclerosis N Tendon Tear N Ulcers N Heart Attack (NC) N Osteopenia N Diabetes N Bleeding Disorder N Seizures/Epilepsy N Cardiac Stent N Tuberculosis N A-FIB N BPH N Lymphoma N Urinary Tract Infection N Back Problems Y Diverticulitis N Dementia N Asthma N Vision Problems N Lupus N 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 Obstetrics History GPAL:G 0 P 0 0 0 0 Past Encounters Encounter ID Performer Location Encounter Start Date Encounter Closed Date Diagnosis/Indication Diagnosis SNOMED-CT Code Diagnosis ICD10 Code Diagnosis Note [id number] [facility] [address] [place] [id number] 09/12/2013 11:11:40 09/12/2013 12:00:44 Knee pain 69356286 Localized, primary osteoarthritis 442227998 [id number] [facility] [address] [place] [id number] 10/03/2013 13:46:45 10/07/2013 12:32:19 Localized, primary osteoarthritis 620735369 [id number] [facility] [address] [place] [address] 11/14/2013 10:57:06 11/14/2013 11:26:05 Localized, primary osteoarthritis 405776917 [id number] [facility] [address] [place] [id number] 10/16/2014 09:02:24 10/16/2014 14:10:23 Localized, primary osteoarthritis 011550623 [id number] [facility] [address] [place] [address] 03/12/2015 10:18:52 03/12/2015 11:58:59 [id number] [facility] [address] [place] [id number] 04/23/2015 09:59:06 04/23/2015 11:00:23 Foot pain 70992105 M79.671 Shoulder pain 01832683 M 25.512 [id number] [facility] [address] [place] [id number] 10/01/2015 09:22:54 10/01/2015 10:59:33 Inflammation of joint of shoulder region 015831818 M19.012 Shoulder pain 61867893 M 25.512 Anterior knee pain 52897 3006 M25.562 [id number] [facility] [address] [place] [address] 09/15/2016 11:50:15 09/15/2016 14:41:46 Knee pain 63508868 M25.561 M25.562 [id number] Anibal Davalos MD [facility] [address] [place] [address] 09/29/2016 13:46:55 10/02/2016 11:07:41 [id number] [facility] [address] [address] [place] [address] 12/01/2016 14:05:18 12/05/2016 16:07:13 [id number] [facility] [address] [place] [address] 09/21/2017 14:13:40 09/24/2017 13:16:06 Shoulder pain 55606790 M25.511 [id number] [facility] [address] [place] [address] 04/12/2018 11:26:15 04/12/2018 14:21:35 Shoulder pain 19061381 M25.511 [id number] [facility] [address] [place] [address] 06/14/2018 09:43:36 06/14/2018 12:33:57 Knee pain 08538531 M25.561 M25.562 [id number] [facility] [address] [place] [id number] 11/01/2018 15:05:03 11/04/2018 11:52:51 Shoulder pain 38051459 M25.512 Osteoarthr itis of knee 197484622 M17.0 [id number] [facility] [address] [place] [id number] 01/15/2019 15:33:07 01/15/2019 16:30:21 [id number] [facility] [address] [place] [id number] 09/17/2020 11:14:14 09/20/2020 13:37:08 Foot pain 46504451 M79.671 M79.672 [id number] [facility] [address] [place] [id number] 12/10/2020 13:24:41 12/14/2020 13:20:17 [id number] [facility] [address] [place] [address] 02/04/2021 09:11:32 02/07/2021 12:56:24 [id number] [facility] [address] [place] [id number] 03/18/2021 12:40:07 03/18/2021 13:25:38 Knee pain 87810116 M25.561 M25.562 [id number] Dave Nemesio [facility] [address] [place] [address] 11/30/2022 09:48:13 11/30/2022 14:57:52 Knee pain 31374790 M25.569 [id number] [facility] [address] [place] [id number] 12/21/2022 11:21:03 12/21/2022 15:17:39 [id number] [facility] [address] [place] [id number] 08/30/2023 11:46:58 08/30/2023 15:24:45 Low back pain 120021500 M54.50 [id number] [facility] [address] [place] [id number] 11/29/2023 10:11:33 11/29/2023 14:52:54 Lumbar radiculopathy 909204154 M54.16 [id number] [facility] [address] [place] [address] 04/17/2024 11:31:12 04/17/2024 16:42:05 Low back pain 594065833 M54.50 [id number] [facility] [address] [place] [address] 07/24/2024 10:56:53 07/24/2024 15:26:45 Pain of left hip joint 9015556539 25495 M25.552 Health Concerns Section Related Observation LastModified by Organization Detai ls LastModified Time None Recorded Concern Status LastModified by Organization Details LastModified Time None Recorded Advance Directives Directive None Recorded Payers Encounter Date Sequence Insurance Name Policy Number Policy Chanel Covered Member ID Chanel Member ID Guarantor Name 12/21/2022 1 [place] [id number] Pj D Mariel [id number] Rafia D Mariel 08/30/2023 1 [place] [id number] Pj D Mariel [id number] Rafia D Mariel 11/29/2023 1 [place] [id number] Pj D Mariel [id number] Rafia D Mariel 04/17/2024 1 [place] [id number] Pj D Mariel [id number] Rafia D Mariel 07/24/2024 1 [place] [id number] Pj D Mariel [id number] Rafia D Mariel OBGyn Episode No OBEpisode recorded.
== END 2024-09-24 14:43 | disposition home or self-care (01) ==
PROVIDERS: Emergency Provider Registered Nurse; PCP Internal Medicine
DX: J01.40 Acute pansinusitis, unspecified (principal); I10 Essential (primary) hypertension; E03.9 Hypothyroidism, unspecified; K21.9 Gastro-esophageal reflux disease without esophagitis; Z86.73 Personal history of transient ischemic attack (TIA), and cerebral infarction without residual deficits
CPT/HCPCS: 99213; G0463